=== PATIENT | female | born 1985 | race Caucasian/White ===

== ENCOUNTER 2016-11-28 13:01 | Emergency (ER) | payer SELFPAY ==
[2016-11-28 15:09] VITALS: BP 119/61
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
== END 2016-11-28 17:22 | disposition home or self-care (01) ==
LOC: ED 13:01
DX: H92.09 Otalgia, unspecified ear (principal); S16.1XXA Strain of muscle, fascia and tendon at neck level, initial encounter; V49.9XXA Car occupant (driver) (passenger) injured in unspecified traffic accident, initial encounter; Y93.9 Activity, unspecified; Y92.9 Unspecified place or not applicable
CPT/HCPCS: 72125; 72128; 72131; 99282

== ENCOUNTER 2017-07-09 20:23 | Emergency (ER) | payer SELFPAY ==
[2017-07-09 20:31] VITALS: BP 114/77
[2017-07-09] MEDS ORDERED: Amoxicillin PO (*) 500 MG CAP PO ONE (21:45)
--- NOTE | 2017-07-09 21:50 | UC ---
FLU HPI - HPI Summary HPI Summary: patient is an otherwise healthy 32-year-old female presenting to the with complaints of cough, congestion, diffuse myalgias, right sided throat pain and lymphadenopathy. Symptoms have been present for 2 days. Aggravated by nothing and relieved with nothing. She denies any known fevers, sweats, chills. She denies any known sick contacts. She has taken ibuprofen with a moderate amount of relief. Cough is without production. Denies any chest pain or shortness of breath. - History of Current Complaint Chief Complaint: UCRespiratory Stated Complaint: THROAT PAIN Time Seen by Provider: 07/09/17 21:08 Hx Obtained From: Patient Hx Last Menstrual Period: now ?: No Onset/Duration: Sudden Onset Severity Currently: Mild Severity Initially: Moderate Pain Intensity: 7 Pain Scale Used: 0-10 Numeric Associated Signs & Symptoms: Positive: Myalgia, Cough, Sore Throat Related Hx: Possible Flu/Infectious Exposure - Allergy/Home Medications Allergies/Adverse Reactions: Allergies Allergy/AdvReac Type Severity Reaction Status Date / Time No Known Allergies Allergy Verified 07/09/17 20:32 PMH/Surg Hx/FS Hx/Imm Hx Previously Healthy: Yes - Surgical History Surgical History: Yes Surgery Procedure, Year, and Place: Reconstructive surgery x3 nose. INGROWN TOENAILS BILATERAL GREAT TOES surgery - Family History Known Family History: Positive: None, Other - No history of migraine or related problems. - Social History Occupation: Employed Full-time Lives: With Family Alcohol Use: None Substance Use Type: None Smoking Status (MU): Never Smoked Tobacco Household Exposure Type: Cigarettes - Immunization History Most Recent Influenza Vaccination: unknown Most Recent Tetanus Shot: unknown Most Recent Pneumonia Vaccination: none Vaccination Up to Date: Yes Review of Systems Constitutional: Negative Skin: Negative Eyes: Negative ENT: Sore Throat Respiratory: Cough Cardiovascular: Negative Motor: Negative Neurovascular: Negative Neurological: Negative Psychological: Negative Is Patient Immunocompromised?: No All Other Systems Reviewed And Are Negative: Yes Physical Exam Triage Information Reviewed: Yes Appearance: Well-Appearing, Well-Nourished Vital Signs: Initial Vital Signs Temp 98.8 F 07/09/17 20:29 Pulse 85 07/09/17 20:29 Resp 18 07/09/17 20:29 BP 114/77 07/09/17 20:29 Pulse Ox 99 07/09/17 20:29 Vital Signs Reviewed: Yes Eye Exam: Normal Eyes: Positive: Conjunctiva Clear Neck exam: Normal Neck: Positive: Supple, No Lymphadenopathy Respiratory Exam: Normal Respiratory: Positive: Chest non-tender, Lungs clear Cardiovascular Exam: Normal Cardiovascular: Positive: RRR Neurological Exam: Normal Neurological: Positive: Alert Psychological: Positive: Normal Response To Family Skin Exam: Normal Flu Course/Dx - Course Course Of Treatment: During the course of treatment, the patient's evaluated for URI symptoms. Influenza and strep swabs obtained and negative. Right anterior cervical lymphadenopathy is noted, no pharyngeal erythema or exudates. Lungs clear to auscultation bilaterally. She appears well. She is afebrile on arrival and other vital signs are stable. I discussed with her supportive care and she is okay with this plan at this time. She is to return to the urgent care if any symptoms become worse. I have given her a note for one day off work. - Differential Dx/Diagnosis Differential Diagnosis/HQI/PQRI: Upper Respiratory Infection Provider Diagnoses: Viral Syndrome Discharge - Discharge Plan Condition: Stable Disposition: HOME Patient Education Materials: Upper Respiratory Infection (ED) Forms: *Work Release Referrals: No Primary Care Phys,NOPCP [Primary Care Provider] - Additional Instructions: Drink plenty of fluids Tylenol and ibuprofen intermittently every 3 hours Humidifier in the home will help Rest as much as you can
== END 2017-07-09 21:52 | disposition home or self-care (01) ==
LOC: UCEAST 20:23
DX: B34.9 Viral infection, unspecified (principal)
CPT/HCPCS: 87502; 87651; 99211; G0463

== ENCOUNTER 2018-03-07 08:52 | Emergency (ER) | payer SELFPAY ==
[2018-03-07 09:02] VITALS: BP 118/75
--- NOTE | 2018-03-07 09:49 | UC ---
Abdominal Pain Female HPI - HPI Summary HPI Summary: 33 yo with low abdominal pain for several weeks, she states it feels like ovulation pain but milder , around 1-2/10 most of the time and occasionally 3-4/ 10. Patient denies vaginal d/c, dysuria ,dyspareunia, headaches, fever, flank pain or radiation of pain to other areas. Denies nausea, vomiting or diarrhea. LMD FEB 15, 2018. States shehad a j2ee consultant exam in November and everything was normal - History of Current Complaint Chief Complaint: UCAbdominalPain Stated Complaint: LOWER ABD PAIN/CRAMPING Time Seen by Provider: 03/07/18 09:15 Hx Obtained From: Patient Hx Last Menstrual Period: 02/15/18 ?: No Onset/Duration: Sudden Onset, Lasting Weeks Severity Initially: Mild Severity Currently: Mild Pain Intensity: 4 Location: Suprapubic Radiates: No Character: Cramping Aggravating Factor(s): Nothing Alleviating Factor(s): Nothing Associated Signs and Symptoms: Positive: Negative - Risk Factors Ectopic Risk Factor: Negative Allergies/Adverse Reactions: Allergies Allergy/AdvReac Type Severity Reaction Status Date / Time No Known Allergies Allergy Verified 03/07/18 09:02 Home Medications: Home Medications NK [No Home Medications Reported] 03/07/18 [History Confirmed 03/07/18] PMH/Surg Hx/FS Hx/Imm Hx Previously Healthy: Yes - Surgical History Surgical History: Yes Surgery Procedure, Year, and Place: Reconstructive surgery x3 nose. INGROWN TOENAILS BILATERAL GREAT TOES surgery - Family History Known Family History: Positive: None, Other - No history of migraine or related problems. - Social History Alcohol Use: None Substance Use Type: None Smoking Status (MU): Never Smoked Tobacco Household Exposure Type: Cigarettes - Immunization History Most Recent Influenza Vaccination: unknown Most Recent Tetanus Shot: unknown Most Recent Pneumonia Vaccination: none Vaccination Up to Date: Yes Review of Systems All Other Systems Reviewed And Are Negative: Yes Gastrointestinal: Positive: Abdominal Pain Physical Exam Triage Information Reviewed: Yes Appearance: Well-Appearing, No Pain Distress, Well-Nourished Vital Signs: Initial Vital Signs Temp 98 F 03/07/18 08:59 Pulse 91 03/07/18 08:59 Resp 17 03/07/18 08:59 BP 118/75 03/07/18 08:59 Pulse Ox 99 03/07/18 08:59 Vital Signs Reviewed: Yes Eyes: Positive: Conjunctiva Clear ENT: Positive: Hearing grossly normal, Pharynx normal Neck: Positive: Supple, Nontender, No Lymphadenopathy Respiratory: Positive: Chest non-tender, Lungs clear, Normal breath sounds, No respiratory distress Cardiovascular: Positive: RRR, No Murmur, Pulses Normal, Brisk Capillary Refill Abdomen Description: Positive: Nontender, No Organomegaly, Soft Bowel Sounds: Positive: Present Musculoskeletal: Positive: Strength Intact, ROM Intact, No Edema Neurological: Positive: Alert, Muscle Tone Normal Psychological Exam: Normal Skin Exam: Normal Abd Pain Female Course/Dx - Course Course Of Treatment: 33 yo paitent with low abdominal pain of mild intensity without any other associated symptoms or physical findings , Patient had a recent normal j2ee consultant exam . test and urinalysis wnl . F.u with PCP referral was given. - Differential Dx/Diagnosis Provider Diagnoses: Low abdominal pain Discharge - Sign-Out/Discharge Documenting (check all that apply): Patient Departure All imaging exams completed and their final reports reviewed: No Studies - Discharge Plan Condition: Stable Disposition: HOME Patient Education Materials: Abdominal Pain (ED) Referrals: No Primary Care Phys,NOPCP [Primary Care Provider] - [facility]FERRAL [Outside] - Billing Disposition and Condition Condition: STABLE Disposition: Home
== END 2018-03-07 09:45 | disposition home or self-care (01) ==
LOC: UCEAST 08:52
DX: R10.30 Lower abdominal pain, unspecified (principal)
CPT/HCPCS: 81003; 84702; 99211; G0463

== ENCOUNTER → 2018-04-03 19:29 | Emergency (ER) | payer SELFPAY ==
[~2018-04-03 19:29] MED LIST: HYDROcodone/ACETAMIN 5-325 MG* 1 TAB PO ONE
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
[2018-04-03 22:10] VITALS: BP 115/74
== END | disposition home or self-care (01) ==
LOC: ED 19:29
DX: S09.90XA Unspecified injury of head, initial encounter (principal); S00.93XA Contusion of unspecified part of head, initial encounter; W10.9XXA Fall (on) (from) unspecified stairs and steps, initial encounter; Y92.9 Unspecified place or not applicable
CPT/HCPCS: 70450; 72125; 99282

== ENCOUNTER 2018-08-01 10:23 | Emergency (ER) | payer OTHER ==
--- NOTE | 2018-08-01 12:35 | UC ---
Respiratory Complaint HPI - HPI Summary HPI Summary: PATIENT COMES IN WITH 2 WEEKS OF HARSH, DEEP CHESTY COUGH WITH SOME PLEURITIC PAIN. SHE WAS HOSPITALIZED 06/26/18 - 06/28/18 WITH RIGHT MIDDLE LOBE PNEUMONIA AND DISCHARGED WITH AZITHROMYCIN AND CEFUROXIME. PATIENT STATES SHE FEELS SHE NEVER FULLY RECOVERED FROM THIS ILLNESS AND THAT OVER THE PAST 2 WEEKS THE COUGH HAS BEEN GETTING WORSE. NO FEVER OR NAUSEA. OF NOTE PATIENT IS 20 WEEKS . HAD ULTRASOUND FOR ANATOMY 2 DAYS AGO AND EVERYTHING LOOKED GOOD. BABY IS MOVING WELL. NEVER HAD FOLLOW-UP ULTRASOUND AFTER HOSPITAL DISCHARGE. - History of Current Complaint Chief Complaint: UCRespiratory Stated Complaint: COUGH,CONGESTION Time Seen by Provider: 08/01/18 12:01 Hx Obtained From: Patient Hx Last Menstrual Period: 02/15/18 Onset/Duration: Gradual Onset, Lasting Weeks, Still Present Timing: Constant Severity Initially: Moderate Severity Currently: Moderate Pain Intensity: 3 Pain Scale Used: 0-10 Numeric Character: Cough: Nonproductive Aggravating Factors: Nothing Alleviating Factors: Nothing Associated Signs And Symptoms: Negative: Dyspnea, Fever, Chills, Wheezing - Allergies/Home Medications Allergies/Adverse Reactions: Allergies Allergy/AdvReac Type Severity Reaction Status Date / Time No Known Allergies Allergy Verified 08/01/18 10:29 PMH/Surg Hx/FS Hx/Imm Hx Previously Healthy: Yes - Surgical History Surgical History: Yes Surgery Procedure, Year, and Place: Reconstructive surgery x3 nose. INGROWN TOENAILS BILATERAL GREAT TOES - Family History Known Family History: Positive: Other - No family history of migraine or related problems. - Social History Alcohol Use: None Substance Use Type: None Smoking Status (MU): Never Smoked Tobacco Household Exposure Type: Cigarettes - Immunization History Most Recent Influenza Vaccination: unknown Most Recent Tetanus Shot: unknown Most Recent Pneumonia Vaccination: none Vaccination Up to Date: Yes Review of Systems All Other Systems Reviewed And Are Negative: Yes Constitutional: Positive: Fatigue ENT: Positive: Negative Respiratory: Positive: Cough Cardiovascular: Positive: Chest Pain Gastrointestinal: Positive: Negative Neurological: Positive: Negative Physical Exam Triage Information Reviewed: Yes Appearance: Well-Appearing, No Pain Distress, Well-Nourished Vital Signs: Initial Vital Signs Temp 98.4 F 08/01/18 10:26 Pulse 104 08/01/18 10:26 Resp 18 08/01/18 10:26 BP 113/77 08/01/18 10:26 Pulse Ox 98 08/01/18 10:26 Vital Signs Reviewed: Yes Eyes: Positive: Conjunctiva Clear ENT: Positive: Hearing grossly normal Neck: Positive: Supple Respiratory: Positive: Lungs clear, No respiratory distress, No accessory muscle use, Decreased breath sounds - RIGHT MID LUNG/LUNG BASE Cardiovascular Exam: Normal Abdomen Description: Positive: Nontender, Soft Musculoskeletal: Positive: No Edema Neurological: Positive: Alert Psychological: Positive: Age Appropriate Behavior Skin: Negative: Rashes Diagnostics - Radiology CXR Radiology Interpretation Completed By: Radiologist Summary of Radiographic Findings: RELATIVE TO THE CHEST X-RAY DATED JUNE 26, 2018 THERE HAS BEEN INTERVAL INCREASE IN SIZE OF THE RIGHT MIDDLE LOBE MASS WITH PERSISTENT ELEVATION OF THE RIGHT HEMIDIAPHRAGM. ALTHOUGH THE PATIENT IS NOT THE USUAL DEMOGRAPHIC FOR NEOPLASM, NEOPLASM SHOULD BE CONSIDERED IF THE PATIENT HAS RECEIVED APPROPRIATE PNEUMONIA ANTIBIOTIC THERAPY. Respiratory Course/Dx - Course Course Of Treatment: CHEST X-RAY TODAY SHOWS INTERVAL INCREASE IN SIZE OF RIGHT LUNG MASS CONCERNING FOR NEOPLASM. DISCUSSED PATIENT'S CASE WITH DR. GORE FROM ONCOLOGY. HE WOULD LIKE TO SEE HER IN HIS OFFICE FOR FOLLOW-UP TOMORROW OR THE NEXT DAY. SHE IS TO CALL DR. GORE'S OFFICE AT 8:30 AM TOMORROW MORNING TO SCHEDULE AN APPOINTMENT. NO OTHER INTERVENTION INDICATED TODAY. PATIENT IS UNDERSTANDABLY DISTRESSED. REPORTS SHE HAS A GOOD SOCIAL AND SUPPORT NETWORK AROUND HER INCLUDING HER PARENTS AND MANY FRIENDS. SHE STATES SHE HAS AN AMICABLE RELATIONSHIP WITH THE FATHER OF HER CURRENT BUT THAT THEY ARE NOT ACTUALLY TOGETHER. PATIENT STATES SHE CAN CALL SOMEONE TO BE WITH HER OVER THE NEXT FEW DAYS. NOTE FOR OFF WORK PROVIDED. - Differential Dx/Diagnosis Provider Diagnosis: Mass of right lung - Physician Notification/Consults Discussed Patient Care With: Gonzalez Flannery - AGREE WITH RPT CXR AND TX INDICATED Time Discussed With Above Provider: 12:20 Discharge - Sign-Out/Discharge Documenting (check all that apply): Patient Departure All imaging exams completed and their final reports reviewed: Yes - Discharge Plan Condition: Stable Disposition: HOME Forms: *Work Release Referrals: Toribio Gore MD [Medical Doctor] - 1 Day Additional Instructions: YOU HAVE A MASS IN YOUR RIGHT LUNG THAT IS CONCERNING FOR NEOPLASM/CANCER. CALL DR. GORE'S OFFICE AT 8:30AM TOMORROW MORNING TO SCHEDULE AN APPOINTMENT FOR THURSDAY OR THURSDAY. HE WILL DISCUSS WITH YOU THE DIFFERENTIAL DIAGNOSIS WELL TESTING THAT NEEDS TO BE DONE. - Billing Disposition and Condition Condition: STABLE Disposition: Home
[2018-08-01 13:43] VITALS: BP 111/67
== END 2018-08-01 14:26 | disposition home or self-care (01) ==
LOC: UCEAST 10:23
DX: R91.8 Other nonspecific abnormal finding of lung field (principal); R05 Cough; R07.81 Pleurodynia
CPT/HCPCS: 71046; 99211; G0463

== ENCOUNTER 2018-08-07 14:37 | Emergency (ER) | payer OTHER ==
--- NOTE | 2018-08-07 16:47 | ED ---
HPI Chest Pain - HPI Summary HPI Summary: This patient is a 33 year old female presenting to [facility] with a chief complaint of chest pain since last week. Patient had a bout of pneumonia 6 weeks ago and was admitted for 4 days. After a course of antibiotics, patient states that she felt better. Last week, she experienced a mild cough and chest pain, so she went to , where imaging found a mass in her lung. Patient went to see Dr. Carvalho and had a biopsy 3 days ago and patient states that the chest pain has worsened since. The pain is rated 4/10 in severity. Symptoms aggravated by nothing. Symptoms alleviated by nothing. Patient denies vomiting. Patient is very anxious and is also concerned that her anxiety may be aggravating her symptoms. Patient is currently 21 weeks . - History of Current Complaint Chief Complaint: EDChestWallPain Time Seen by Provider: 08/07/18 16:31 Hx Obtained From: Patient Hx Last Menstrual Period: 02/15/18 Onset/Duration: Started Days Ago, Still Present Timing: Constant Initial Severity: Moderate Pain Intensity: 4 Pain Scale Used: 0-10 Numeric Chest Pain Location: Diffuse Chest Pain Radiates: No Aggravating Factor(s): Nothing Alleviating Factor(s): Nothing Associated Signs and Symptoms: Positive: Negative - vomiting, Cough - Additional Pertinent History Primary Care Physician: GEORGE - Allergy/Home Medications Allergies/Adverse Reactions: Allergies Allergy/AdvReac Type Severity Reaction Status Date / Time No Known Allergies Allergy Verified 08/07/18 14:44 PMH/Surg Hx/FS Hx/Imm Hx Previously Healthy: No Endocrine/Hematology History: Denies: Hx Diabetes Cardiovascular History: Denies: Hx Hypertension, Hx Pacemaker/ICD Respiratory History: Denies: Hx Asthma, Hx Chronic Obstructive Pulmonary Disease (COPD) History: Denies: Hx Renal Disease Sensory History: Denies: Hx Contacts or Glasses, Hx Legally Blind, Hx Deafness, Hx Hearing Aid Opthamlomology History: Denies: Hx Contacts or Glasses, Hx Legally Blind Neurological History: Denies: Hx Dementia Psychiatric History: Reports: Hx Anxiety - Says it has dimished as she's gotten older. Denies: Hx Panic Disorder - Surgical History Surgery Procedure, Year, and Place: Reconstructive surgery x3 nose. INGROWN TOENAILS BILATERAL GREAT TOES Infectious Disease History: No Infectious Disease History: Denies: Hx Hepatitis, Traveled Outside the [place] in Last 30 Days - Family History Known Family History: Positive: Other - No family history of migraine or related problems. - Social History Lives: With Family Alcohol Use: None Hx Substance Use: No Substance Use Type: Reports: None Hx Tobacco Use: No Smoking Status (MU): Never Smoked Tobacco Review of Systems Negative: Fever Positive: Chest Pain Positive: Cough Negative: Vomiting All Other Systems Reviewed And Are Negative: Yes Physical Exam - Summary Physical Exam Summary: Constitutional: Well-developed, Well-nourished, Alert. Patient is very anxious Skin: Warm, Dry HENT: Normocephalic; Atraumatic Eyes: Conjunctiva normal Neck: Musculoskeletal ROM normal neck. Cardio: Rhythm regular, rate normal, Heart sounds normal; Intact distal pulses; The pedal pulses are 2+ and symmetric. Radial pulses are 2+ and symmetric. Pulmonary/Chest wall: Effort normal. Tenderness to palpation at chest wall at site of biopsy. Abd: Soft, Musculoskeletal: Normal Lymph: Normal Neuro: Alert, Oriented x3 Psych: Mood and affect normal. Triage Information Reviewed: Yes Vital Signs On Initial Exam: Initial Vitals Temp Pulse Resp BP Pulse Ox 98.4 F 99 16 112/72 97 08/07/18 14:45 08/07/18 14:45 08/07/18 14:45 08/07/18 14:45 08/07/18 14:45 Vital Signs Reviewed: Yes Diagnostics - Vital Signs Vital Signs Temp Pulse Resp BP Pulse Ox 08/07/18 14:45 98.4 F 99 16 112/72 97 - Laboratory Result Diagrams: 08/07/18 17:10 08/07/18 17:10 Lab Statement: Any lab studies that have been ordered have been reviewed, and results considered in the medical decision making process. - Radiology CXR Radiology Interpretation Completed By: Radiologist Summary of Radiographic Findings: CXR reveals, per radiologist, IMPRESSION: 1. THERE IS A MEDIASTINAL MASS WHICH PROJECTS OVER THE RIGHT HEART BORDER AND RIGHT LUNG BASE WHICH IS UNCHANGED. 2. ELEVATED RIGHT HEMIDIAPHRAGM. ED physician has reviewed this radiology report. - EKG 1658 Cardiac Rate: NL EKG Rhythm: Sinus Rhythm - 73 BPM Summary of EKG Findings: An EKG, taken 1658, reveals NSR (73 BPM), normal AR, normal QRS, normal QTc, normal axis, normal ST, normal T-waves, normal EKG. Chest Pain Course/Dx - Course Course Of Treatment: This patient is a 33 year old female presenting to [facility] with a chief complaint of chest pain since last week. Patient had a bout of pneumonia 6 weeks ago and was admitted for 4 days. After a course of antibiotics , patient states that she felt better. Last week, she experienced a mild cough and chest pain, so she went to , where imaging found a mass in her lung. Patient went to see Dr. Carvalho and had a biopsy 3 days ago and patient states that the chest pain has worsened since. An EKG, taken 1658, reveals NSR (73 BPM) , normal AR, normal QRS, normal QTc, normal axis, normal ST, normal T-waves, normal EKG. CXR reveals, per radiologist, IMPRESSION: 1. THERE IS A MEDIASTINAL MASS WHICH PROJECTS OVER THE RIGHT HEART BORDER AND RIGHT LUNG BASE WHICH IS UNCHANGED. 2. ELEVATED RIGHT HEMIDIAPHRAGM. ED physician has reviewed this radiology report. Bloodwork Obtained. The pt is hemodynamically stable, alert and oriented x3. We discussed patient care with Bruce Reed (Oncology) at 1833 and they stated that as long as patient is not exhibiting signs of SVC syndrome, she can be evaluated in clinic. Patient will be discharged with a dx of chest pain and lymphoma and a prescription for hydrocodone. Patient is advised to follow up with PCP in 3 days. The patient is agreeable with this plan. - Diagnoses Provider Diagnoses: Chest pain, Lymphoma - Provider Notifications Instructed by Provider To: Other - We discussed patient care with Bruce Reed (Oncology) at 1833 and they stated that as long as patient is not exhibiting signs of SVC syndrome, she can be evaluated in clinic. Discharge - Sign-Out/Discharge Documenting (check all that apply): Patient Departure Patient Received Moderate/Deep Sedation with Procedure: No - Discharge Plan Condition: Stable Disposition: HOME Prescriptions: HYDROcodone/ACETAMIN 5-325 MG* [[place] 5-325 TAB*] 1 tab PO Q4H PRN #15 tab MDD 6 PRN Reason: Pain Patient Education Materials: Hydrocodone/Acetaminophen (By mouth) Print Language: UZBEK Forms: *Work Release Referrals: No Primary Care Phys,NOPCP [Primary Care Provider] - - Billing Disposition and Condition Condition: STABLE Disposition: Home - Attestation Statements Document Initiated by Scribe: Yes Documenting Scribe: Jose Lobato Provider For Whom Issac is Documenting (Include Credential): Bárbara Sandra MD Scribe Attestation: I, Jose Lobato, scribed for Bárbara Castillo MD on 08/07/18 at 2140. Scribe Documentation Reviewed: Yes Provider Attestation: The documentation as recorded by the Jose franco accurately reflects the service I personally performed and the decisions made by me, Bárbara Castillo MD Status of Scribe Document: Viewed
[2018-08-07 17:23] LABS: ABS Basophils 0 10^3/ul (0-0.2); ABS Eosinophils 0.4 10^3/ul (0-0.6); ABS Lymphocytes 1.5 10^3/ul (1.0-4.8); ABS Monocytes 0.5 10^3/ul (0-0.8); ABS Neutrophils 7.3 10^3/ul (1.5-7.7); ABS Nucleated RBC 0 10^3/ul; Hematocrit 34 % (33-41); Hemoglobin 11.8 g/dL (12.0-16.0); Lymphocyte % 15.2 %; Mean Corpuscular HGB Conc 34 g/dL (31-36); Mean Corpuscular Hemoglobin 28 pg (27-31); Mean Corpuscular Volume 83 fL (80-97); Mean Platelet Volume 7.6 fL (7.4-10.4); Nucleated Red Blood Cells % 0; Platelet Count 269 10^3/uL (150-450); Red Blood Count 4.15 10^6 /uL (3.70-4.87); Red Cell Distribution Width 14 % (10.5-15); White Blood Count 9.7 10^3/uL (3.5-10.8)
[2018-08-07 17:34] LABS: Albumin 3.3 g/dL (3.2-5.2); Albumin/Globulin Ratio 1.1 (1-3); Calcium 8.6 mg/dL (8.6-10.3); Potassium 3.7 mmol/L (3.5-5.0); Total Bilirubin 0.2 mg/dL (0.2-1.0); Total Protein 6.3 g/dL (6.4-8.9)
[2018-08-07 17:36] LABS: Troponin I 0.01 ng/mL (<0.04)
[2018-08-07 19:21] VITALS: BP 122/65
== END 2018-08-07 19:36 | disposition home or self-care (01) ==
LOC: ED 14:37
DX: O26.92 Pregnancy related conditions, unspecified, second trimester (principal); C85.90 Non-Hodgkin lymphoma, unspecified, unspecified site; R07.9 Chest pain, unspecified; Z3A.21 21 weeks gestation of pregnancy; R91.8 Other nonspecific abnormal finding of lung field
CPT/HCPCS: 36415; 71045; 80053; 84484; 85025; 93005; 99283

== ENCOUNTER 2018-08-12 05:41 | Day surgery (SDC) | payer OTHER ==
[~2018-08-12 05:41] MED LIST changes: +Buffered Lidocaine 1% SYRIN* 1 ML/SYRINGE INTRADERM ONE; -HYDROcodone/ACETAMIN 5-325 MG* 1 TAB PO ONE
[2018-08-12] MEDS ORDERED: Lactated Ringers 1000 ML Bag* 1,000 ML IV SCH (06:00)
[2018-08-12] MEDS ORDERED: Buffered Lidocaine 1% SYRIN* 1 ML/SYRINGE INTRADERM ONE (06:15)
[2018-08-12] MEDS ORDERED: Lidocaine 1% INJ* 10 MG/ML 30 ML SDV ONE (06:45)
[2018-08-12] MEDS ORDERED: fentaNYL* 50 MCG/ML 2 ML VIAL (100 MCG VIAL) ONE (07:29)
[2018-08-12] MEDS ORDERED: Propofol* 10 MG/ML 20 ML BTL ONE ×2 (07:29→07:35)
[2018-08-12] MEDS ORDERED: Lidocaine 2% PF * 5 ML VIAL ONE (07:29)
[2018-08-12] MEDS ORDERED: Naloxone* 0.4 MG/ML 1 ML VIAL IV PRN (08:05)
[2018-08-12] MEDS ORDERED: Acetaminophen TAB* 325 MG ONE (08:27)
[2018-08-12 09:32] VITALS: BP 122/80
--- NOTE | 2018-08-12 12:46 | OP ---
CC: Dr. Leodan Lyons; Dr. Carvalho OPERATIVE REPORT: DATE OF OPERATION: 08/12/18 DATE OF : 85 SURGEON: Leodan Lyons MD TIE IN MACHINE OPERATOR: None. ANESTHESIOLOGIST: Dr. Pollack. ANESTHESIA: LMAC anesthesia. PRE-OP DIAGNOSIS: Lymphoma. POST-OP DIAGNOSIS: Lymphoma. OPERATIVE PROCEDURE: Placement of left subclavian PowerPort. DESCRIPTION OF PROCEDURE: The patient was supine on the operating room table. After adequate intrave nous sedation, compression stockings, Audelia Hugger warmer, and intravenous antibiotics, the left neck and chest region were prepped with antiseptic and draped in a sterile fashion. Local infiltrative an esthesia was administered. Subclavian venipuncture was carried out. Guidewire was passed without di fficulty. Inferior pocket was created through a 3 cm incision and the port was sutured in the pocket using 2-0 Prolene. The catheter was cut to 27 cm and attached to the port. This was done under flu oroscopy. Due to the nature of the tumor, the course of the catheter was a little deviated, but it a ppeared to be in good position. Closure was accomplished using 3-0 and 5-0 Vicryl followed by Steri- Strips. There was good blood return. It was flushed with saline solution and heparinized solution. She was brought to Recovery in good condition. No complications. No drains. No pathologic specime ns. Sponge and instrument counts correct. Estimated blood loss 10 mL. [id number]/[facility] #: [id number]
== END 2018-08-12 11:05 | disposition home or self-care (01) ==
LOC: OR 05:41
PROVIDERS: ATTEND Surgery
DX: C83.30 Diffuse large B-cell lymphoma, unspecified site (principal); R91.8 Other nonspecific abnormal finding of lung field; R05 Cough
CPT/HCPCS: 71045; 76000; A9270-GY; C1788; J1642; J2704; J3010

== ENCOUNTER 2018-08-14 10:53 | Emergency (ER) | payer OTHER ==
[2018-08-14 12:21] LABS: ABS Basophils 0 10^3/ul (0-0.2); ABS Eosinophils 0.2 10^3/ul (0-0.6); ABS Lymphocytes 1.1 10^3/ul (1.0-4.8); ABS Monocytes 0.4 10^3/ul (0-0.8); ABS Neutrophils 7.3 10^3/ul (1.5-7.7); ABS Nucleated RBC 0 10^3/ul; Eosinophil % 2.7 %; Hematocrit 33 % (33-41); Hemoglobin 11.2 g/dL (12.0-16.0); Lymphocyte % 12.1 %; Mean Corpuscular HGB Conc 34 g/dL (31-36); Mean Corpuscular Hemoglobin 28 pg (27-31); Mean Corpuscular Volume 83 fL (80-97); Mean Platelet Volume 7.2 fL (7.4-10.4); Nucleated Red Blood Cells % 0; Platelet Count 222 10^3/uL (150-450); Red Blood Count 3.99 10^6 /uL (3.70-4.87); Red Cell Distribution Width 14 % (10.5-15); White Blood Count 9.1 10^3/uL (3.5-10.8)
[2018-08-14 12:40] LABS: Albumin 3.3 g/dL (3.2-5.2); Albumin/Globulin Ratio 1.2 (1-3); BUN/Creatinine Ratio 27.8 (8-20); C Reactive Protein 14.84 mg/L (<8.01); Calcium 8.5 mg/dL (8.6-10.3); EGFR African American 157.3 (>60); Globulin 2.8 g/dL (2-4); Potassium 3.8 mmol/L (3.5-5.0); Total Bilirubin 0.3 mg/dL (0.2-1.0); Total Protein 6.1 g/dL (6.4-8.9); Troponin I 0.01 ng/mL (<0.04)
[2018-08-14 13:09] LABS: Urine Appearance Turbid; Urine Bilirubin Negative (Negative); Urine Blood Negative (Negative); Urine Color Amber; Urine Glucose Negative (Negative); Urine Ketones Negative (Negative); Urine Nitrite Negative (Negative); Urine Protein Negative (Negative); Urine Specific Gravity 1.019 (1.010-1.030); Urine Urobilinogen Negative (Negative)
[2018-08-14 14:30] VITALS: BP 112/75
[2018-08-14] MEDS ORDERED: Hydrocortisone 1% CREAM* 30 GM TUBE TOPICAL SCH ×2 (14:34→21:00)
--- NOTE | 2018-08-14 16:24 | ED ---
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 Patient states symptoms have been intermittent 2 days since getting the port placed. She had a subsequent chest abdomen pelvis MRI which showed no acute findings. There does not appear to be malignancy on the scans. Bone marrow biopsy of the left femur showed no evidence of hematologic malignancy. Patient states she is currently asymptomatic, but due to everything that has been happening, she does have anxiety and feels this may be related. She denies any worsening SOB, but this is her baseline secondary to her lymphoma. She denies any weakness. Denies any headaches, visual changes, confusion, memory loss, CP, numbness or tingling to the bilateral upper or lower extremities. Pain is strictly at the port site without radiation. There is pain only to palpation. - History of Current Complaint Chief Complaint: EDGeneral Stated Complaint: FEELS PRESSURE ON HER FACE. PER PT Time Seen by Provider: 08/14/18 11:24 Hx Obtained From: Patient Hx Last Menstrual Period: 02/15/18 Onset/Duration: Started Hours Ago Timing: Constant Initial Severity: Mild Current Severity: Mild Pain Intensity: 0 Pain Scale Used: 0-10 Numeric Chest Pain Location: Left Lateral - directly over the incision site of new port placement Chest Pain Radiates: No Aggravating Factor(s): Nothing Alleviating Factor(s): Nothing Associated Signs and Symptoms: Positive: Negative - Additional Pertinent History Primary Care Physician: [id number] - Allergy/Home Medications Allergies/Adverse Reactions: Allergies Allergy/AdvReac Type Severity Reaction Status Date / Time No Known Allergies Allergy Verified 08/14/18 11:16 Home Medications: Home Medications Citalopram Hydrobromide [Citalopram HBr] 1 tab PO DAILY 08/14/18 [History Confirmed 08/14/18] Ondansetron [Ondansetron Odt] 4 mg PO DAILY PRN 08/14/18 [History Confirmed ] Prochlorperazine Maleate 5 mg PO DAILY PRN 08/14/18 [History Confirmed 08/14/18] predniSONE TAB* [Deltasone 20 MG TAB*] 1 tab PO DAILY 08/14/18 [History Confirmed 08/14/18] PMH/Surg Hx/FS Hx/Imm Hx Previously Healthy: Yes Endocrine/Hematology History: Denies: Hx Diabetes Cardiovascular History: Denies: Hx Hypertension, Hx Pacemaker/ICD Respiratory History: Denies: Hx Asthma, Hx Chronic Obstructive Pulmonary Disease (COPD) History: Denies: Hx Renal Disease Sensory History: Denies: Hx Contacts or Glasses, Hx Legally Blind, Hx Deafness, Hx Hearing Aid Opthamlomology History: Denies: Hx Contacts or Glasses, Hx Legally Blind Neurological History: Denies: Hx Dementia Psychiatric History: Reports: Hx Anxiety - Says it has dimished as she's gotten older. Denies: Hx Panic Disorder - Cancer History Cancer Type, Location and Year: NEW DX - NONHODGKINS LYMPHOMA Hx Chemotherapy: No Hx Radiation Therapy: No - Surgical History Surgery Procedure, Year, and Place: POWER PORT - Immunization History Hx Pertussis Vaccination: No Immunizations Up to Date: Yes Infectious Disease History: No Infectious Disease History: Denies: Hx Hepatitis, Traveled Outside the [place] in Last 30 Days - Family History Known Family History: Positive: Other - No family history of migraine or related problems. - Social History Occupation: Unemployed Lives: With Family Alcohol Use: None Hx Substance Use: No Substance Use Type: Reports: None Hx Tobacco Use: No Smoking Status (MU): Never Smoked Tobacco Review of Systems Constitutional: Negative Negative: Fever, Chills, Fatigue, Skin Diaphoresis Negative: Photophobia, Blurred Vision, Diplopia, Drainage, Erythema Positive: Chest Pain - left anterior chest wall over incision site. Negative: Palpitations Negative: Shortness Of Breath, Cough Negative: Arthralgia, Myalgia Skin: Negative Neurological: Negative Positive: Anxious All Other Systems Reviewed And Are Negative: Yes NIH Scale - NIH Scale Level of Consciousness: Alert/Keenly Responsive Ask Patient the Month and His/Her Age: Both Correct Ask Pt to Open/Close Eyes and Oxygraph Operator/Release Non-Paretic Hand: Both Correctly Best Gaze (Only Horizontal Eye Movement): Normal Visual Field Testing: No Visual Loss Facial Paresis-Pt to Smile & Close Eyes or Grimace Symmetry: Normal/Symmetrical Motor Function - Right Arm: No Drift-Holds 10 Seconds Motor Function - Left Arm: No Drift-Holds 10 Seconds Motor Function - Right Leg: No Drift-Holds 10 Seconds Motor Function - Left Leg: No Drift-Holds 10 Seconds Limb Ataxia-Must be out of Proportion to Weakness Present: Absent Sensory (Use Pinprick to Test Arms/Legs/Trunk/Face): Normal Best Language (Describe Picture, Name Items): No Aphasia Dysarthria (Read Several Words): Normal Extinction and Inattention: No Abnormality Total Score: 0 Physical Exam Triage Information Reviewed: Yes Vital Signs On Initial Exam: Initial Vitals Temp Pulse Resp BP Pulse Ox 97.6 F 99 16 109/80 99 08/14/18 11:10 08/14/18 11:10 08/14/18 11:10 08/14/18 11:10 08/14/18 11:10 Vital Signs Reviewed: Yes Appearance: Positive: Well-Appearing, Well-Nourished Skin: Positive: Warm, Skin Color Reflects Adequate Perfusion Head/Face: Positive: Normal Head/Face Inspection Eyes: Positive: EOMI, JUNI, Conjunctiva Clear Neck: Positive: Supple, Nontender, No Lymphadenopathy Respiratory/Lung Sounds: Positive: Clear to Auscultation, Breath Sounds Present Cardiovascular: Positive: RRR, Pulses are Symmetrical in both Upper and Lower Extremities Musculoskeletal: Positive: Normal, Strength/ROM Intact Neurological: Positive: Speech Normal Psychiatric: Positive: Normal, Affect/Mood Appropriate AVPU Assessment: Alert Diagnostics - Vital Signs Vital Signs Temp Pulse Resp BP Pulse Ox 08/14/18 14:29 98.2 F 90 16 112/75 97 08/14/18 14:22 94 112/75 97 08/14/18 12:04 93 94 08/14/18 11:51 95 97 08/14/18 11:10 97.6 F 99 16 109/80 99 - Laboratory Lab Results: Lab Results 08/14/18 08/14/18 08/14/18 Range/Units 12:15 12:15 12:47 WBC 9.1 (3.5-10.8) 10^3/uL RBC 3.99 (3.70-4.87) 10^6 /uL Hgb 11.2 L (12.0-16.0) g/dL Hct 33 (33-41) % MCV 83 (80-97) fL MCH 28 (27-31) pg MCHC 34 (31-36) g/dL RDW 14 (10.5-15) % Plt Count 222 (150-450) 10^3/uL MPV 7.2 L (7.4-10.4) fL Neut % (Auto) 80.4 % Lymph % (Auto) 12.1 % [place] % (Auto) 4.4 % Eos % (Auto) 2.7 % Baso % (Auto) 0.4 % Absolute Neuts (auto) 7.3 (1.5-7.7) 10^3/ul Absolute Lymphs (auto) 1.1 (1.0-4.8) 10^3/ul Absolute Monos (auto) 0.4 (0-0.8) 10^3/ul Absolute Eos (auto) 0.2 (0-0.6) 10^3/ul Absolute Basos (auto) 0 (0-0.2) 10^3/ul Absolute Nucleated RBC 0 10^3/ul Nucleated RBC % 0 Sodium 136 (135-145) mmol/L Potassium 3.8 (3.5-5.0) mmol/L Chloride 107 (101-111) mmol/L Carbon Dioxide 22 (22-32) mmol/L Anion Gap 7 (2-11) mmol/L BUN 15 (6-24) mg/dL Creatinine 0.54 (0.51-0.95) mg/dL Est GFR ( Amer) 157.3 (>60) Est GFR (Non-Af Amer) 130.0 (>60) BUN/Creatinine Ratio 27.8 H (8-20) Glucose 91 (70-100) mg/dL Calcium 8.5 L (8.6-10.3) mg/dL Total Bilirubin 0.30 (0.2-1.0) mg/dL AST 14 (13-39) U/L ALT 18 (7-52) U/L Alkaline Phosphatase 185 H (34-104) U/L Troponin I 0.01 (<0.04) ng/mL C-Reactive Protein 14.84 H (<8.01) mg/L Total Protein 6.1 L (6.4-8.9) g/dL Albumin 3.3 (3.2-5.2) g/dL Globulin 2.8 (2-4) g/dL Albumin/Globulin Ratio 1.2 (1-3) Urine Color Pamela Urine Appearance Turbid Urine pH 7.0 (5-9) Ur Specific [place] 1.019 (1.010-1.030) Urine Protein Negative (Negative) Urine Ketones Negative (Negative) Urine Blood Negative (Negative) Urine Nitrate Negative (Negative) Urine Bilirubin Negative (Negative) Urine Urobilinogen Negative (Negative) Ur Leukocyte Esterase Negative (Negative) Urine Glucose Negative (Negative) Result Diagrams: 08/14/18 12:15 08/14/18 12:15 Lab Statement: Any lab studies that have been ordered have been reviewed, and results considered in the medical decision making process. Disposition - Course Course Of Treatment: On physical examination, patient appears well, nontoxic appearing and lungs are clear to auscultation. There is a small incision over the left chest wall with port placement. No drainage from this area. Incision is CDI. Pain directly over palpation. Patient states she is very anxious about all that is going on and she does not have support at home. She feels most of her symptoms are related to her anxiety, but would like to know the results of her testing from yesterday and is concerned over malignancy. She states "I just want to make sure I'm not dying." She appears very anxious on arrival. Labs obtained: No acute findings. No chest x-ray obtained as MRI completed yesterday. Lungs CTA, RRR. Patient is afebrile and nontoxic appearing. Neuro exam completed and with no abnormalities. Discussed at length with patient the importance of social work consult and finding good support systems in the community as she was recently diagnosed with lymphoma and she is concerned with her financial status and take care for her children. Also she is currently . She has very close follow-up with Dr. Carvalho in his office. She has an appointment with Evangelina Alanis in 2 days. Patient states she feels comfortable with her follow-ups it is currently asymptomatic. Her vital signs are stable and she is okay for discharge at this time. She'll be diagnosed with anxiety. - Differential Dx - Cardiopulmonary Differential Diagnoses - Cardiopulmonary: Other - Chest pain, worsening condition, lymphoma, pain at port site - Diagnoses Provider Diagnoses: Anxiety about health, Incisional pain Discharge - Sign-Out/Discharge Documenting (check all that apply): Patient Departure Patient Received Moderate/Deep Sedation with Procedure: No - Discharge Plan Condition: Stable Disposition: HOME Patient Education Materials: Implanted Venous Access Port (DC), Anxiety (ED) Referrals: No Primary Care Phys,NOPCP [Primary Care Provider] - Additional Instructions: Please follow up with oncology as scheduled Social work should be reaching out to you Please get the help you need No findings today on blood work and your results of MRI and bone marrow biopsy were given to you as requested - Billing Disposition and Condition Condition: STABLE Disposition: Home
== END 2018-08-14 14:29 | disposition home or self-care (01) ==
LOC: ED 10:53
DX: F41.9 Anxiety disorder, unspecified (principal); G89.18 Other acute postprocedural pain; Z79.52 Long term (current) use of systemic steroids
CPT/HCPCS: 36415; 80053; 81003; 84484; 85025; 86140; 99283; A9270-GY

== ENCOUNTER 2018-08-21 08:45 | Emergency (ER) | payer OTHER ==
--- NOTE | 2018-08-21 09:13 | ED ---
Upper Extremity Pain - HPI Summary HPI Summary: This patient is a 33 year old female presenting to [facility] with a chief complaint of left axillary pain since this week. Patient is an ongoing lymphoma patient, having been at the beginning of this month. Patient spoke to Dr. Starr, her oncologist, who recommended the patient have an evaluation in the ED to rule out a blood clot. The pain is rated 6/10 in severity. Symptoms aggravated by nothing. Symptoms alleviated by nothing. Patient denies any other medical complaints at this time. Patient is also currently . - History of Current Complaint Chief Complaint: EDExtremityUpper Stated Complaint: STARTED CHEMO TUES/LFT ARM PIT RED/PAIN PER PT Time Seen by Provider: 08/21/18 09:00 Hx Obtained From: Patient Hx Last Menstrual Period: 02/15/18 Mechanism Of Injury: Unknown Onset/Duration: Started Days Ago, Still Present Timing: Constant Severity Currently: Moderate Pain Location: Other: - left armpit Aggravating Factor(s): Nothing Alleviating Factor(s): Nothing Associated Signs & Symptoms: Negative: Fever - Allergies/Home Medications Allergies/Adverse Reactions: Allergies Allergy/AdvReac Type Severity Reaction Status Date / Time No Known Allergies Allergy Verified 08/21/18 08:49 PMH/Surg Hx/FS Hx/Imm Hx Previously Healthy: No Endocrine/Hematology History: Denies: Hx Diabetes Cardiovascular History: Denies: Hx Hypertension, Hx Pacemaker/ICD Respiratory History: Denies: Hx Asthma, Hx Chronic Obstructive Pulmonary Disease (COPD) History: Denies: Hx Renal Disease Sensory History: Denies: Hx Contacts or Glasses, Hx Legally Blind, Hx Deafness, Hx Hearing Aid Opthamlomology History: Denies: Hx Contacts or Glasses, Hx Legally Blind Neurological History: Denies: Hx Dementia Psychiatric History: Reports: Hx Anxiety - Says it has dimished as she's gotten older. 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 - Social History Lives: With Family Alcohol Use: None Hx Substance Use: No Substance Use Type: Reports: None Hx Tobacco Use: No Smoking Status (MU): Never Smoked Tobacco Review of Systems Negative: Fever Positive: Other - left axillary pain All Other Systems Reviewed And Are Negative: Yes Physical Exam - Summary Physical Exam Summary: Appearance: well appearing, no pain distress Skin: warm, dry, reflects adequate perfusion Head/face: normal Eyes: EOMI, JUNI ENT: mucous membranes moist Neck: supple, non-tender Respiratory: breath sounds present, but diminished at right base Cardiovascular: RRR, pulses symmetrical Abdomen: non-tender, soft Bowel Sounds: present Musculoskeletal: strength/ROM intact. Lymphadenopathy in the right axillary Neuro: normal, sensory motor intact, A&Ox3 Triage Information Reviewed: Yes Vital Signs On Initial Exam: Initial Vitals Temp Pulse Resp BP Pulse Ox 96.7 F 107 15 130/75 97 08/21/18 08:50 08/21/18 08:50 08/21/18 08:50 08/21/18 08:50 08/21/18 08:50 Vital Signs Reviewed: Yes Diagnostics - Vital Signs Vital Signs Temp Pulse Resp BP Pulse Ox 08/21/18 08:50 96.7 F 107 15 130/75 97 - Laboratory Lab Statement: Any lab studies that have been ordered have been reviewed, and results considered in the medical decision making process. - Additional Comments Diagnostic Additional Comments: Bedside US preformed by ED physician: Fetus is active. heart tones present ; measures 23 weeks and 3 days. RUQ shows right sided hydronephrosis and hyperechoic mass above the diaphragm on the right. On the left axillla, the veins are easily compressible and there is adenopathy. Good flow in the subclavian vein. Course/Dx - Course Course Of Treatment: Nurse's notes reviewed. Patient with history of B-cell lymphoma who presents with painful lesions in the left axilla. Eye exam the area with bedside ultrasound which showed adenopathy but good blood flow without evidence of DVT in the axillary vessels or basilic/brachial. There is also good blood flow in the left subclavian. The fetus is active with heart tones and is measuring appropriate for dates. Additionally I examined the right low chest given her chronic cough. It appears that there is solid lesion that is hyperechoic above the diaphragm on that side. This is likely her tumor. I explained that her adenopathy is likely related to her cancer as well. She is currently undergoing chemotherapy and will be-induced to deliver her baby pending the recommendations of oncology/maternal- medicine. Treated with Tylenol and warm compresses. - Diagnoses Differential Diagnosis/HQI/PQRI: Positive: Other - DVT, cellulitis, lymphadenitis Provider Diagnoses: B-cell lymphoma, Lymphadenopathy, Second trimester Discharge - Sign-Out/Discharge Documenting (check all that apply): Patient Departure Patient Received Moderate/Deep Sedation with Procedure: No - Discharge Plan Condition: Improved Disposition: HOME Patient Education Materials: Non-Hodgkin Lymphoma (ED), Lymphadenopathy (ED) Referrals: Toribio Carvalho MD [Primary Care Provider] - Additional Instructions: Tylenol for discomfort. Warm compresses to the area may help. Follow-up with her oncologist on Thursday. Return if worse or other concerns. - Billing Disposition and Condition Condition: IMPROVED Disposition: Home - Attestation Statements Document Initiated by Briceibe: Yes Documenting Scribe: Jose Lobato Provider For Whom Issac is Documenting (Include Credential): Pablo Cochran MD Scribe Attestation: Jose Del Angel scribed for Pablo Cochran MD on 08/21/18 at 1022. Scribe Documentation Reviewed: Yes Provider Attestation: The documentation as recorded by the Jose franco accurately reflects the service I personally performed and the decisions made by , Pablo Cochran MD Status of Scribe Document: Viewed
[2018-08-21 09:43] VITALS: BP 120/74
== END 2018-08-21 09:33 | disposition home or self-care (01) ==
LOC: ED 08:45
DX: O9A.112 Malignant neoplasm complicating pregnancy, second trimester (principal); O26.892 Other specified pregnancy related conditions, second trimester; C85.10 Unspecified B-cell lymphoma, unspecified site; M79.622 Pain in left upper arm; Z3A.23 23 weeks gestation of pregnancy
CPT/HCPCS: 99282

== ENCOUNTER 2018-08-29 16:41 | Emergency (ER) | payer OTHER ==
--- NOTE | 2018-08-29 19:17 | ED ---
Complex/Multi-Sys Presentation - HPI Summary HPI Summary: 33-year-old female presents feeling that her port in her chest has moved. She has the port due to chemotherapy need for lymphoma. She states that her child has been bumping her chest and she feels like the port has moved upwards. She just has pain around the port. No chest pain or shortness breath. No swelling to her face or arms. Denies any current numbness. States her lymph nodes in her armpit though have been feeling swollen. Denies any fevers or chills. No spreading redness. - History Of Current Complaint Chief Complaint: EDGeneral Time Seen by Provider: 08/29/18 18:25 - Allergies/Home Medications Allergies/Adverse Reactions: Allergies Allergy/AdvReac Type Severity Reaction Status Date / Time No Known Allergies Allergy Verified 08/21/18 08:49 PMH/Surg Hx/FS Hx/Imm Hx Endocrine/Hematology History: Denies: Hx Diabetes Cardiovascular History: Denies: Hx Hypertension, Hx Pacemaker/ICD Respiratory History: Denies: Hx Asthma, Hx Chronic Obstructive Pulmonary Disease (COPD) History: Denies: Hx Renal Disease Sensory History: Denies: Hx Contacts or Glasses, Hx Legally Blind, Hx Deafness, Hx Hearing Aid Opthamlomology History: Denies: Hx Contacts or Glasses, Hx Legally Blind Neurological History: Denies: Hx Dementia Psychiatric History: Reports: Hx Anxiety - Says it has dimished as she's gotten older. 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 - Social History Alcohol Use: None Hx Substance Use: No Substance Use Type: Reports: None Hx Tobacco Use: No Smoking Status (MU): Never Smoked Tobacco Review of Systems Negative: Fever Positive: Other - possible moved port. Negative: Chest Pain Negative: Shortness Of Breath All Other Systems Reviewed And Are Negative: Yes Physical Exam Triage Information Reviewed: Yes Vital Signs On Initial Exam: Initial Vitals Temp Pulse Resp BP Pulse Ox 97.8 F 103 16 115/79 98 08/29/18 16:57 08/29/18 16:57 08/29/18 16:57 08/29/18 16:57 08/29/18 16:57 Vital Signs Reviewed: Yes Appearance: Positive: Well-Appearing Skin: Positive: Warm, Dry Head/Face: Positive: Normal Head/Face Inspection Eyes: Positive: Normal, Conjunctiva Clear ENT: Positive: Pharynx normal Respiratory/Lung Sounds: Positive: Clear to Auscultation, Breath Sounds Present , Other - incision clean dry and intact Cardiovascular: Positive: Normal, RRR Musculoskeletal: Positive: Normal Neurological: Positive: Normal Psychiatric: Positive: Normal Diagnostics - Vital Signs Vital Signs Temp Pulse Resp BP Pulse Ox 08/29/18 16:57 97.8 F 103 16 115/79 98 - Laboratory Lab Statement: Any lab studies that have been ordered have been reviewed, and results considered in the medical decision making process. - Radiology chest Radiology Interpretation Completed By: ED Physician Summary of Radiographic Findings: port in place Complex Multi-Symp Course/Dx Course Of Treatment: 33-year-old female presents feeling that her port in her chest has moved. She has the port due to chemotherapy need for lymphoma. She states that her child has been bumping her chest and she feels like the port has moved upwards. She just has pain around the port. No chest pain or shortness breath. No swelling to her face or arms. Denies any current numbness. States her lymph nodes in her armpit though have been feeling swollen. Denies any fevers or chills. No spreading redness. On exam surgical incision clean dry and intact. Port felt underneath. X-ray read by me and Dr. ruiz in place. Told to follow up with oncology. Patient understands agrees with plan. - Diagnoses Differential Diagnoses/HQI/PQRI: Other - port placement, cellulitis Provider Diagnoses: Port-A-Cath in place Discharge - Sign-Out/Discharge Documenting (check all that apply): Patient Departure Patient Received Moderate/Deep Sedation with Procedure: No - Discharge Plan Condition: Good Disposition: HOME Referrals: Toribio Carvalho MD [Primary Care Provider] - Additional Instructions: your port appears to be in the right place follow up with oncology Return to ED if develop any new or worsening symptoms - Billing Disposition and Condition Condition: GOOD Disposition: Home
[2018-08-29 19:26] VITALS: BP 127/65
--- NOTE | 2018-08-30 12:14 | PN ---
Progress Note - Progress Note Date of Service: 08/29/18 Note: Final radiology read on CXR: IMPRESSION: 1. ELEVATED RIGHT HEMIDIAPHRAGM, UNCHANGED. 2. MASSLIKE DENSITY PRESENT MEDIALLY AT THE RIGHT LUNG BASE, UNCHANGED. 3. FINDINGS SUGGESTIVE OF A TRACE RIGHT PLEURAL EFFUSION, UNCHANGED. R2 No change in treatment needed.
== END 2018-08-29 19:24 | disposition home or self-care (01) ==
LOC: ED 16:41
DX: Z95.828 Presence of other vascular implants and grafts (principal); C85.90 Non-Hodgkin lymphoma, unspecified, unspecified site; F41.9 Anxiety disorder, unspecified; R91.8 Other nonspecific abnormal finding of lung field
CPT/HCPCS: 71045; 99282

== ENCOUNTER 2018-09-15 09:36 | Emergency (ER) | payer OTHER ==
--- NOTE | 2018-09-15 10:15 | ED ---
Respiratory - HPI Summary HPI Summary: The patient is a 33 y/o F presenting to [facility] with a chief complaint of sudden onset productive cough with small amount of sputum for the last few days. She is unsure of the color of the sputum. She started chemotherapy treatments for Nongodgkins Lyphoma recently with her latest and only second treatment last week , and her next one is in two weeks; she fears for infection due to being immunocompromised. She additionally c/o CP with the cough, chills, and nausea. Her pain is currently rated 3/10 in severity. She denies fever and vomiting. Her PCP is Dr. Carvalho. - History of Current Complaint Chief Complaint: EDUpperRespComplaint Stated Complaint: ON CHEMO/HAS A NASTY COLD/CANT BREATHE PER PT Time Seen by Provider: 09/15/18 10:07 Hx Obtained From: Patient Onset/Duration: Sudden Onset, Lasting Days, Still Present Initial Severity: Mild Current Severity: Mild Pain Intensity: 3 Character: Cough (Productive) Sputum Amount: Small Aggravating Factor(s): Nothing Alleviating Factor(s): Nothing Associated Signs and Symptoms: Chest Pain with Cough, Chills - Allergy/Home Medications Allergies/Adverse Reactions: Allergies Allergy/AdvReac Type Severity Reaction Status Date / Time No Known Allergies Allergy Verified 09/15/18 09:59 PMH/Surg Hx/FS Hx/Imm Hx Endocrine/Hematology History: Denies: Hx Diabetes Cardiovascular History: Denies: Hx Hypertension, Hx Pacemaker/ICD Respiratory History: Denies: Hx Asthma, Hx Chronic Obstructive Pulmonary Disease (COPD) History: Denies: Hx Renal Disease Sensory History: Denies: Hx Contacts or Glasses, Hx Legally Blind, Hx Deafness, Hx Hearing Aid Opthamlomology History: Denies: Hx Contacts or Glasses, Hx Legally Blind Neurological History: Denies: Hx Dementia Psychiatric History: Reports: Hx Anxiety - Says it has dimished as she's gotten older. Denies: Hx Panic Disorder - Cancer History Cancer Type, Location and Year: NEW DX - NONHODGKINS LYMPHOMA Hx Chemotherapy: No Hx Radiation Therapy: No - Surgical History Surgery Procedure, Year, and Place: POWER PORT - Immunization History Immunizations Up to Date: Yes Infectious Disease History: No Infectious Disease History: Denies: Hx Hepatitis, Traveled Outside the [place] in Last 30 Days - Family History Known Family History: Positive: Other - No family history of migraine or related problems. Negative: Cardiac Disease, Hypertension, Diabetes - Social History Alcohol Use: None Hx Substance Use: No Substance Use Type: Reports: None Hx Tobacco Use: No Smoking Status (MU): Never Smoked Tobacco Do You Chew or Dip Tobacco: No Have You Chewed or Dipped Tobacco in the LAST YEAR: No Have You Smoked in the Last Year: No Review of Systems Positive: Chills. Negative: Fever Positive: Chest Pain - with cough Positive: Cough - productive Positive: Nausea. Negative: Vomiting All Other Systems Reviewed And Are Negative: Yes Physical Exam - Summary Physical Exam Summary: VITAL SIGNS: Reviewed. GENERAL: Patient is a well-developed and nourished female who is lying comfortable in the stretcher. Patient is not in any acute respiratory distress. HEAD AND FACE: No signs of trauma. No ecchymosis, hematomas or skull depressions. No sinus tenderness. EYES: PERRLA, EOMI x 2, No injected conjunctiva, no nystagmus. EARS: Hearing grossly intact. Ear canals and tympanic membranes are within normal limits. MOUTH: Oropharynx within normal limits. NECK: Supple, trachea is midline, no adenopathy, no JVD, no carotid bruit, no c- spine tenderness, neck with full ROM. CHEST: Symmetric, no tenderness at palpation LUNGS: Clear to auscultation bilaterally. No wheezing or crackles. CVS: Regular rate and rhythm, S1 and S2 present, no murmurs or gallops appreciated. ABDOMEN: Soft, non-tender. No signs of distention. No rebound no guarding, and no masses palpated. Bowel sounds are normal. EXTREMITIES: FROM in all major joints, no edema, no cyanosis or clubbing. NEURO: Alert and oriented x 3. No acute neurological deficits. Speech is normal and follows commands. SKIN: Dry and warm Triage Information Reviewed: Yes Vital Signs On Initial Exam: Initial Vitals Temp Pulse Resp BP Pulse Ox 97.0 F 123 19 148/99 95 09/15/18 09:40 09/15/18 09:40 09/15/18 09:40 09/15/18 09:40 09/15/18 09:40 Vital Signs Reviewed: Yes Diagnostics - Vital Signs Vital Signs Temp Pulse Resp BP Pulse Ox 09/15/18 09:40 97.0 F 123 19 148/99 95 - Laboratory Result Diagrams: 09/15/18 11:34 09/15/18 11:34 Lab Statement: Any lab studies that have been ordered have been reviewed, and results considered in the medical decision making process. - Radiology CXR Radiology Interpretation Completed By: Radiologist Summary of Radiographic Findings: 1. Interval decrease in size of the mediastinal mass. 2. Elevated right hemidiaphragm, small right basilar infiltrate suggestive of atelectasis and trace right pleural effusion, unchanged. ED physician has reviewed this report. - EKG 1121 Cardiac Rate: NL - 97 BPM EKG Rhythm: Sinus Rhythm EKG Comparison: No Significant Change - Similar to EKG taken on 08/07/18 Summary of EKG Findings: NSR, nml axis, no ST elevations Re-Evaluation - Re-Evaluation First Eval Re-Evaluation Time: 12:35 Comment: I spoke with the patient concerning results and discharge home. Disposition - Course Assessment/Plan: The patient is a 33 y/o F presenting to [facility] with a chief complaint of sudden onset productive cough with small amount of sputum for the last few days. She is unsure of the color of the sputum. She started chemotherapy treatments for Nongodgkins Lyphoma recently with her latest and only second treatment last week, and her next one is in two weeks; she fears for infection due to being immunocompromised. She additionally c/o CP with the cough, chills, and nausea. Her pain is currently rated 3/10 in severity. She denies fever and vomiting. Her PCP is Dr. Carvalho. Patient was placed in a cardiac care unit nurse. IV access was obtained. Blood work, EKG and chest x-ray was ordered. Chest x-ray impression: Interval decrease in size of the mediastinal mass. Elevated right hemidiaphragm and, small right basilar infiltrate suggestive atelectasis and trace right pleural effusion. Unchanged. The blood work without any significant abnormality except for slight anemia, sodium of 134 , CRP of 13, urinalysis positive for UTI. Therefore, the patient will be placed in Bactrim and discharged home with follow-up with PCP and Dr. Carvalho. I discussed all the findings and test results with the patient. Patient was instructed to return to the emergency room immediately if any of the symptoms return worsens. Plan of care was discussed with the patient and understands and agrees. All questions were answered at patient satisfaction. There were no further complaints or concerns. Lung exam before discharge: CTA B/L. Good air exchange. No wheezing or crackles heard. CVS: S1 and S2 present. No murmurs appreciated. Patient is alert and oriented x 3. Patient is hemodynamically stable. Patient will be discharged home with follow up PCP in the next 2-3 days. - Differential Dx - Cardiopulmonary Differential Diagnoses - Cardiopulmonary: Bronchitis, CHF, Lower Resp Infection - Diagnoses Provider Diagnoses: UTI (urinary tract infection) Discharge - Sign-Out/Discharge Documenting (check all that apply): Patient Departure - Patient will be discharged home. Patient Received Moderate/Deep Sedation with Procedure: No - Discharge Plan Condition: Stable Disposition: HOME Prescriptions: Sulfamethox/Trimethoprim DS* [Bactrim DS 800/160 TAB*] 1 tab PO BID #14 tab Patient Education Materials: Urinary Tract Infection in Women (DC) Referrals: Toribio Carvalho MD [Primary Care Provider] - 3 Days Additional Instructions: Please take medication as prescribed. FOLLOW UP WITH YOUR PRIMARY CARE PROVIDER WITHIN ONE WEEK. RETURN TO THE ED FOR ANY WORSENING OR NEW SYMPTOMS. - Billing Disposition and Condition Condition: STABLE Disposition: Home - Attestation Statements Document Initiated by Issac: Yes Documenting Scribe: Sri Quiles Provider For Whom Issac is Documenting (Include Credential): Dr. Bud Keyes MD Scribe Attestation: Sri Del Angel scribed for Dr. Bud Keyes MD on 09/16/18 at 2123. Scribe Documentation Reviewed: Yes Provider Attestation: The documentation as recorded by the Sri franco accurately reflects the service I personally performed and the decisions made by me, Dr. Bud Keyes MD Status of Scribrusty Document: Viewed
[2018-09-15 11:51] LABS: ABS Lymphocytes 0.4 10^3/ul (1.0-4.8); ABS Monocytes 0.1 10^3/ul (0-0.8); ABS Neutrophils 4.4 10^3/ul (1.5-7.7); Eosinophil % 0.7 %; Hematocrit 33 % (35-47); Hemoglobin 11.4 g/dL (12.0-16.0); Lymphocyte % 7.7 %; Mean Corpuscular HGB Conc 35 g/dL (31-36); Mean Corpuscular Hemoglobin 28 pg (27-31); Mean Corpuscular Volume 81 fL (80-97); Mean Platelet Volume 7.3 fL (7.4-10.4); Platelet Count 213 10^3/uL (150-450); Red Blood Count 4.06 10^6 /uL (3.70-4.87); Red Cell Distribution Width 14 % (10.5-15); White Blood Count 4.9 10^3/uL (3.5-10.8)
[2018-09-15 12:13] LABS: Urine Appearance Cloudy; Urine Bacteria Absent (Absent); Urine Bilirubin Negative (Negative); Urine Blood 2+ (Negative); Urine Color Amber; Urine Glucose Negative (Negative); Urine Ketones Negative (Negative); Urine Nitrite Positive (Negative); Urine Protein Negative (Negative); Urine Red Blood Cell 3+(>10/hpf) (Absent); Urine Specific Gravity 1.012 (1.010-1.030); Urine Squamous Epithelial Cell Present (Absent); Urine Urobilinogen Negative (Negative); Urine White Blood Cell Trace(0-5/hpf) (Absent)
[2018-09-15 12:15] LABS: Albumin 3.5 g/dL (3.2-5.2); Albumin/Globulin Ratio 1.3 (1-3); BUN/Creatinine Ratio 18.5 (8-20); C Reactive Protein 13.02 mg/L (<8.01); Calcium 8.9 mg/dL (8.6-10.3); EGFR African American 157.3 (>60); Globulin 2.6 g/dL (2-4); Potassium 3.8 mmol/L (3.5-5.0); Total Bilirubin 0.4 mg/dL (0.2-1.0); Total Protein 6.1 g/dL (6.4-8.9)
[2018-09-15 12:17] LABS: Troponin I 0.01 ng/mL (<0.04)
[2018-09-15 12:19] LABS: CKMB ng/mL 1.3 ng/mL (0.6-6.3)
[2018-09-15] MEDS ORDERED: Sulfamethox/Trimethoprim DS 800/160* TAB PO ONE (12:39)
[2018-09-15 13:41] VITALS: BP 113/67
== END 2018-09-15 13:44 | disposition home or self-care (01) ==
LOC: ED 09:36
DX: N39.0 Urinary tract infection, site not specified (principal); C85.90 Non-Hodgkin lymphoma, unspecified, unspecified site
CPT/HCPCS: 36415; 71046; 80053; 81003; 81015; 82550; 82553; 83605; 83880; 84484; 85025; 86140; 87040; 87086; 93005; 99282; A9270-GY

== ENCOUNTER → 2018-10-07 09:14 | Emergency (ER) | payer OTHER ==
[~2018-10-07 09:14] MED LIST changes: +Acetaminophen TAB* 325 MG PO ONE; -Buffered Lidocaine 1% SYRIN* 1 ML/SYRINGE INTRADERM ONE; +NS 0.9% 1000 ML** 1,000 ML IV ONE
--- NOTE | 2018-10-07 09:58 | ED ---
Complex/Multi-Sys Presentation - History Of Current Complaint Chief Complaint: EDUpperRespComplaint Time Seen by Provider: 10/07/18 09:32 Hx Obtained From: Patient - Allergies/Home Medications Allergies/Adverse Reactions: Allergies Allergy/AdvReac Type Severity Reaction Status Date / Time No Known Allergies Allergy Verified 10/07/18 09:16 PMH/Surg Hx/FS Hx/Imm Hx Previously Healthy: Yes Endocrine/Hematology History: Denies: Hx Diabetes Cardiovascular History: Denies: Hx Hypertension, Hx Pacemaker/ICD Respiratory History: Denies: Hx Asthma, Hx Chronic Obstructive Pulmonary Disease (COPD) History: Denies: Hx Dialysis, Hx Renal Disease Sensory History: Denies: Hx Contacts or Glasses, Hx Legally Blind, Hx Deafness, Hx Hearing Aid Opthamlomology History: Denies: Hx Contacts or Glasses, Hx Legally Blind Neurological History: Denies: Hx Dementia Psychiatric History: Reports: Hx Anxiety - Says it has dimished as she's gotten older. Denies: Hx Panic Disorder - Cancer History Cancer Type, Location and Year: NONHODGKINS LYMPHOMA Hx Chemotherapy: Yes Hx Radiation Therapy: No - Surgical History Surgery Procedure, Year, and Place: POWER PORT LEFT CHEST ;. BIOPSIES ; Infectious Disease History: No Infectious Disease History: Denies: Hx Hepatitis, Traveled Outside the [place] in Last 30 Days - Family History Known Family History: Positive: Other - No family history of migraine or related problems. Negative: Cardiac Disease, Hypertension, Diabetes - Social History Occupation: Employed Part-time Lives: With Family Alcohol Use: None Hx Substance Use: No Substance Use Type: Reports: None Hx Tobacco Use: No Smoking Status (MU): Never Smoked Tobacco Have You Smoked in the Last Year: No Review of Systems Positive: Chills. Negative: Fever Eyes: Negative ENT: Negative Cardiovascular: Negative Negative: Palpitations, Chest Pain Positive: Cough. Negative: Shortness Of Breath Gastrointestinal: Other - constipation Negative: Abdominal Pain, Vomiting, Diarrhea Genitourinary: Negative Negative: dysuria Neurological: Negative All Other Systems Reviewed And Are Negative: Yes Physical Exam - Summary Physical Exam Summary: Pt. is a 33 y.o female who presents to the ER for worsening ongoing cough and generalized fatigue for several days. Pt. currently being treated for nonhodgkin 's lymphoma. Pt. is also 30 weeks . Pt. states she has a worsening productive cough. She notes she was recently treated for pneumonia. Pt. notes chills without fever. Pt. denies abd. pain, vaginal discharge or bleeding. Pt currently being treated with chemo. Pt. notes she feels she "has an infection somewhere." Sxs are moderate in severity. No current modifying factors. Triage Information Reviewed: Yes Vital Signs On Initial Exam: Initial Vitals Temp Pulse Resp BP Pulse Ox 98.3 F 122 18 130/84 98 10/07/18 09:17 10/07/18 09:17 10/07/18 09:17 10/07/18 09:17 10/07/18 09:17 Vital Signs Reviewed: Yes Appearance: Positive: Well-Appearing - Pt. sitting up in bed in NAD> Skin: Positive: Warm, Dry Head/Face: Positive: Normal Head/Face Inspection Eyes: Positive: Normal, EOMI, JUNI ENT: Positive: Pharynx normal, TMs normal Neck: Positive: Supple, Nontender, No Lymphadenopathy. Negative: Nuchal Rigidity Respiratory/Lung Sounds: Positive: Other - diminished breath sounds throughout Cardiovascular: Positive: Normal, RRR Abdomen Description: Positive: Nontender, Soft Musculoskeletal: Positive: Normal, Strength/ROM Intact Neurological: Positive: Normal, CN Intact II-III Psychiatric: Positive: Affect/Mood Appropriate Diagnostics - Vital Signs Vital Signs Temp Pulse Resp BP Pulse Ox 10/07/18 09:17 98.3 F 122 18 130/84 98 - Laboratory Result Diagrams: 10/07/18 10:08 10/07/18 10:08 Lab Statement: Any lab studies that have been ordered have been reviewed, and results considered in the medical decision making process. Complex Multi-Symp Course/Dx Course Of Treatment: Pt. presenting for worsening cough and fatigue. She is afebrile with stable VS. Given active chemo treatment and pt;s sxs labs and cxr ordered. Labs shows low WBC and chronic anemia. u/s negative for infection. CXR negative for infiltrate per radiology. Pending BC. On re-exam pt. resting comfortably. Results discussed with oncall onc, Dr. Brownlee who has no futher recommendations or concerns. Pt. dc home to . with OB and onc. WIll return to ER if sxs change or worsen. Pt. understands and agrees with plan. - Diagnoses Provider Diagnoses: Bronchitis, Chronic cough Discharge - Sign-Out/Discharge Documenting (check all that apply): Patient Departure Patient Received Moderate/Deep Sedation with Procedure: No - Discharge Plan Condition: Good Disposition: HOME Patient Education Materials: Constipation (ED), Chronic Cough (ED) Referrals: Toribio Carvalho MD [Primary Care Provider] - Additional Instructions: Schedule a close follow up appointment with Dr. Carvalho Increase fluids and rest Increase fiber in diet Return to ER if symptoms change or worsen - Billing Disposition and Condition Condition: GOOD Disposition: Home
[2018-10-07 10:16] LABS: ABS Lymphocytes 0.4 10^3/ul (1.0-4.8); ABS Monocytes 0.1 10^3/ul (0-0.8); ABS Neutrophils 1.2 10^3/ul (1.5-7.7); Hematocrit 30 % (35-47); Hemoglobin 10.3 g/dL (12.0-16.0); Lymphocyte % 20.9 %; Mean Corpuscular HGB Conc 35 g/dL (31-36); Mean Corpuscular Hemoglobin 28 pg (27-31); Mean Corpuscular Volume 81 fL (80-97); Mean Platelet Volume 6.9 fL (7.4-10.4); Nucleated Red Blood Cells % 0.1; Platelet Count 203 10^3/uL (150-450); Red Blood Count 3.65 10^6 /uL (3.70-4.87); Red Cell Distribution Width 15 % (10-15); White Blood Count 1.7 10^3/uL (3.5-10.8)
[2018-10-07 10:38] LABS: Albumin 3.3 g/dL (3.2-5.2); Albumin/Globulin Ratio 1.1 (1-3); BUN/Creatinine Ratio 26.4 (8-20); C Reactive Protein 25.15 mg/L (<8.01); Calcium 8.6 mg/dL (8.6-10.3); EGFR African American 160.8 (>60); EGFR Non-African American 132.9 (>60); Globulin 2.9 g/dL (2-4); Magnesium 1.9 mg/dL (1.9-2.7); Total Bilirubin 0.4 mg/dL (0.2-1.0); Total Protein 6.2 g/dL (6.4-8.9)
[2018-10-07 12:27] LABS: Urine Appearance Cloudy; Urine Bilirubin Negative (Negative); Urine Blood Negative (Negative); Urine Color Yellow; Urine Glucose 1+(50 mg/dL) (Negative); Urine Ketones Negative (Negative); Urine Nitrite Negative (Negative); Urine Protein Negative (Negative); Urine Urobilinogen Negative (Negative)
[2018-10-07 14:21] VITALS: BP 111/77
== END | disposition home or self-care (01) ==
LOC: ED 09:14
DX: O26.893 Other specified pregnancy related conditions, third trimester (principal); J40 Bronchitis, not specified as acute or chronic; C85.90 Non-Hodgkin lymphoma, unspecified, unspecified site; Z3A.30 30 weeks gestation of pregnancy
CPT/HCPCS: 36415; 71046; 80053; 81003; 83605; 83735; 85025; 86140; 87040; 96360; 99284; A9270-GY; J1642

== ENCOUNTER 2018-10-10 01:33 | Emergency (ER) | payer OTHER ==
[2018-10-10] MEDS ORDERED: Metoclopramide IV* 5 MG/ML 2 ML VIAL IV SLOW PU ONE (01:56)
[2018-10-10] MEDS ORDERED: Morphine 4 MG/ML VIAL (1 ml) 4 MG/ML VIAL IV ONE (01:56)
--- NOTE | 2018-10-10 02:03 | ED ---
Throat Pain/Nasal Congestion - HPI Summary HPI Summary: This patient is a 33 year old F presenting to [facility] with a chief complaint of left cheek, jaw and throat pain since yesterday morning. Pain rated 9/10 in severity. She reports pain was unrelieved by Tylenol during the day. She states she took a hydrocodone just prior to coming to the ED. Reports recent cough. Denies fever. Patient was diagnosed with non hodgkins lymphoma in July 2018 and is currently on chemotherapy. Patient is 30 weeks . - History of Current Complaint Chief Complaint: EDGeneral Time Seen by Provider: 10/10/18 01:42 Hx Obtained From: Patient Onset/Duration: Lasting Days Severity: Severe - Allergies/Home Medications Allergies/Adverse Reactions: Allergies Allergy/AdvReac Type Severity Reaction Status Date / Time No Known Allergies Allergy Verified 10/07/18 09:16 PMH/Surg Hx/FS Hx/Imm Hx Endocrine/Hematology History: Denies: Hx Diabetes Cardiovascular History: Denies: Hx Hypertension, Hx Pacemaker/ICD Respiratory History: Denies: Hx Asthma, Hx Chronic Obstructive Pulmonary Disease (COPD) History: Denies: Hx Dialysis, Hx Renal Disease Sensory History: Denies: Hx Contacts or Glasses, Hx Legally Blind, Hx Deafness, Hx Hearing Aid Opthamlomology History: Denies: Hx Contacts or Glasses, Hx Legally Blind Neurological History: Denies: Hx Dementia Psychiatric History: Reports: Hx Anxiety - Says it has dimished as she's gotten older. Denies: Hx Panic Disorder - Cancer History Cancer Type, Location and Year: NONHODGKINS LYMPHOMA Hx Chemotherapy: Yes Hx Radiation Therapy: No - Surgical History Surgery Procedure, Year, and Place: POWER PORT LEFT CHEST ;. BIOPSIES ; Infectious Disease History: No Infectious Disease History: Denies: Hx Hepatitis, Traveled Outside the [place] in Last 30 Days - Family History Known Family History: Positive: Other - No family history of migraine or related problems. Negative: Cardiac Disease, Hypertension, Diabetes - Social History Alcohol Use: None Hx Substance Use: No Substance Use Type: Reports: None Hx Tobacco Use: No Smoking Status (MU): Never Smoked Tobacco Have You Smoked in the Last Year: No Review of Systems Negative: Fever Positive: Sore Throat - neck and cheek pain Positive: Cough All Other Systems Reviewed And Are Negative: Yes Physical Exam - Summary Physical Exam Summary: VITAL SIGNS: Reviewed. GENERAL: Patient is a well-developed and nourished female who is lying comfortable in the stretcher. Patient is not in any acute respiratory distress. HEAD AND FACE: No signs of trauma. No ecchymosis, hematomas or skull depressions. No sinus tenderness. EYES: PERRLA, EOMI x 2, No injected conjunctiva, no nystagmus. EARS: Hearing grossly intact. Ear canals and tympanic membranes are within normal limits. MOUTH: Oropharynx within normal limits. NECK: Supple, trachea is midline, no adenopathy, no JVD, no carotid bruit, no c- spine tenderness, neck with full ROM CHEST: Symmetric, no tenderness at palpation LUNGS: Clear to auscultation bilaterally. No wheezing or crackles. CVS: Regular rate and rhythm, S1 and S2 present, no murmurs or gallops appreciated. ABDOMEN: Soft, non-tender. No signs of distention. No rebound no guarding, and no masses palpated. Bowel sounds are normal. Fundus consistent with 30 week EXTREMITIES: FROM in all major joints, no edema, no cyanosis or clubbing. NEURO: Alert and oriented x 3. No acute neurological deficits. Speech is normal and follows commands. SKIN: Dry and warm Triage Information Reviewed: Yes Vital Signs On Initial Exam: Initial Vitals Temp Pulse Resp BP Pulse Ox 98.6 F 120 20 138/77 97 10/10/18 01:35 10/10/18 01:35 10/10/18 01:35 10/10/18 01:35 10/10/18 01:35 Vital Signs Reviewed: Yes Diagnostics - Vital Signs Vital Signs Temp Pulse Resp BP Pulse Ox 10/10/18 01:35 98.6 F 120 20 138/77 97 - Laboratory Result Diagrams: 10/10/18 02:10 10/10/18 02:10 Lab Statement: Any lab studies that have been ordered have been reviewed, and results considered in the medical decision making process. EENT Course/Dx - Course Course Of Treatment: 33 year old F presenting to [facility] with a chief complaint of left cheek, jaw and throat pain since yesterday morning. History of nonhodgkins lymphoma. Absolute neuts of 0.3. Patient is given 4mg Morphine and 10mg Reglan. Patient is afebrile. Rapid strep is negative. Patient will be discharged home to cointure pain managment at home and will folow up with oncologist on Thursday. - Diagnoses Provider Diagnoses: Sore throat Discharge - Sign-Out/Discharge Documenting (check all that apply): Patient Departure - discharge Patient Received Moderate/Deep Sedation with Procedure: No - Discharge Plan Condition: Stable Disposition: HOME Patient Education Materials: Strep Throat (ED) Referrals: Toribio Carvalho MD [Primary Care Provider] - 2 Days Additional Instructions: You do not have strep throat. Follow up with your oncologist on Thursday. RETURN TO THE EMERGENCY DEPARTMENT FOR CHANGING OR WORSENING SYMPTOMS. - Attestation Statements Document Initiated by Scribe: Yes Documenting Scribe: Roz Mercado Provider For Whom Scribe is Documenting (Include Credential): Alejandro Durant MD Scribe Attestation: Roz Del Angel, scribed for Alejandro Durant MD on 10/10/18 at 0319. Status of Scribe Document: Ready
[2018-10-10 02:20] LABS: Hematocrit 28 % (35-47); Hemoglobin 9.9 g/dL (12.0-16.0); Mean Corpuscular HGB Conc 35 g/dL (31-36); Mean Corpuscular Hemoglobin 29 pg (27-31); Mean Corpuscular Volume 81 fL (80-97); Mean Platelet Volume 7.1 fL (7.4-10.4); Platelet Count 217 10^3/uL (150-450); Red Blood Count 3.48 10^6 /uL (3.70-4.87); Red Cell Distribution Width 16 % (10-15)
[2018-10-10 02:30] LABS: Rapid Strep Molecular Negative (Negative)
[2018-10-10 02:35] LABS: Albumin 3.3 g/dL (3.2-5.2); BUN/Creatinine Ratio 16.9 (8-20); Calcium 8.6 mg/dL (8.6-10.3); EGFR Non-African American 117.4 (>60); Globulin 3.2 g/dL (2-4); Potassium 3.5 mmol/L (3.5-5.0); Total Bilirubin 0.8 mg/dL (0.2-1.0); Total Protein 6.5 g/dL (6.4-8.9)
[2018-10-10 03:10] LABS: ABS Lymphocytes 0.4 10^3/ul (1.0-4.8); ABS Monocytes 0.3 10^3/ul (0-0.8); Eosinophil % 1.6 %; Lymphocyte % 38.6 %; Nucleated Red Blood Cells % 0.3
[2018-10-10 03:12] LABS: ABS Neutrophils 0.3 10^3/ul (1.5-7.7)
[2018-10-10 03:29] VITALS: BP 107/79
== END 2018-10-10 03:45 | disposition home or self-care (01) ==
LOC: ED 01:33
DX: O26.893 Other specified pregnancy related conditions, third trimester (principal); J02.9 Acute pharyngitis, unspecified; C85.90 Non-Hodgkin lymphoma, unspecified, unspecified site; Z3A.30 30 weeks gestation of pregnancy
CPT/HCPCS: 36415; 80053; 85025; 87651; 96374; 96375; 99283; J1642; J2270; J2765

== ENCOUNTER 2018-10-11 03:25 | Emergency (ER) | payer OTHER ==
--- NOTE | 2018-10-11 03:50 | ED ---
Throat Pain/Nasal Congestion - HPI Summary HPI Summary: Patient is a 33 y/o F presenting to ED with complaints of left jaw pain with radiation to left face. She reports temp of 99 F today and notes that she is typically around 97 F. Patient took Tylenol two hours ago, 1500 mg. In room, temp is 98.2 F. Patient had been seen yesterday for similar Sx but reports that pain has exacerbated. Patient was diagnosed with non hodgkins lymphoma in July 2018 and is currently on chemotherapy. Patient is 30 weeks . On triage, pain is rated 9/10. Nothing is noted to aggravate/alleviate Sx. Home medications and allergies are reviewed. - History of Current Complaint Chief Complaint: EDHeadache Time Seen by Provider: 10/11/18 03:45 Hx Obtained From: Patient Onset/Duration: Still Present Severity: Severe Associated Signs And Symptoms: Positive: Negative Cough: None - Allergies/Home Medications Allergies/Adverse Reactions: Allergies Allergy/AdvReac Type Severity Reaction Status Date / Time No Known Allergies Allergy Verified 10/11/18 03:45 PMH/Surg Hx/FS Hx/Imm Hx Endocrine/Hematology History: Denies: Hx Diabetes Cardiovascular History: Denies: Hx Hypertension, Hx Pacemaker/ICD Respiratory History: Denies: Hx Asthma, Hx Chronic Obstructive Pulmonary Disease (COPD) History: Denies: Hx Dialysis, Hx Renal Disease Sensory History: Denies: Hx Contacts or Glasses, Hx Legally Blind, Hx Deafness, Hx Hearing Aid Opthamlomology History: Denies: Hx Contacts or Glasses, Hx Legally Blind Neurological History: Denies: Hx Dementia Psychiatric History: Reports: Hx Anxiety - Says it has dimished as she's gotten older. Denies: Hx Panic Disorder - Cancer History Cancer Type, Location and Year: NONHODGKINS LYMPHOMA Hx Chemotherapy: Yes Hx Radiation Therapy: No - Surgical History Surgery Procedure, Year, and Place: POWER PORT LEFT CHEST ;. BIOPSIES ; Infectious Disease History: No Infectious Disease History: Denies: Hx Hepatitis, Traveled Outside the [place] in Last 30 Days - Family History Known Family History: Positive: Other - No family history of migraine or related problems. Negative: Cardiac Disease, Hypertension, Diabetes - Social History Alcohol Use: None Hx Substance Use: No Substance Use Type: Reports: None Hx Tobacco Use: No Smoking Status (MU): Never Smoked Tobacco Have You Smoked in the Last Year: No Review of Systems Negative: Fever Musculoskeletal: Other - POSITIVE - LEFT JAW PAIN All Other Systems Reviewed And Are Negative: Yes Physical Exam - Summary Physical Exam Summary: VITAL SIGNS: Reviewed. GENERAL: Patient is a well-developed and nourished female who is lying comfortable in the stretcher. Patient is not in any acute respiratory distress. HEAD AND FACE: No signs of trauma. No ecchymosis, hematomas or skull depressions. No sinus tenderness. EYES: PERRLA, EOMI x 2, No injected conjunctiva, no nystagmus. EARS: Hearing grossly intact. Ear canals and tympanic membranes are within normal limits. MOUTH: Oropharynx within normal limits. NECK: Supple, trachea is midline, no adenopathy, no JVD, no carotid bruit, no c- spine tenderness, neck with full ROM CHEST: Symmetric, no tenderness at palpation LUNGS: Clear to auscultation bilaterally. No wheezing or crackles. CVS: Regular rate and rhythm, S1 and S2 present, no murmurs or gallops appreciated. ABDOMEN: Soft, non-tender. No signs of distention. No rebound no guarding, and no masses palpated. Bowel sounds are normal. Fundus level of 30 weeks. EXTREMITIES: FROM in all major joints, no edema, no cyanosis or clubbing. NEURO: Alert and oriented x 3. No acute neurological deficits. Speech is normal and follows commands. SKIN: Dry and warm Triage Information Reviewed: Yes Vital Signs On Initial Exam: Initial Vitals Temp Pulse Resp BP Pulse Ox 97.8 F 117 18 130/87 96 10/11/18 03:29 10/11/18 03:29 10/11/18 03:29 10/11/18 03:29 10/11/18 03:29 Vital Signs Reviewed: Yes Diagnostics - Vital Signs Vital Signs Temp Pulse Resp BP Pulse Ox 10/11/18 03:29 97.8 F 117 18 130/87 96 - Laboratory Result Diagrams: 10/11/18 04:21 10/11/18 04:22 Lab Statement: Any lab studies that have been ordered have been reviewed, and results considered in the medical decision making process. EENT Course/Dx - Course Course Of Treatment: Patient is a 33 y/o F presenting to ED with complaints of left jaw pain with radiation to left face. She reports temp of 99 F today and notes that she is typically around 97 F. Patient took Tylenol two hours ago, 1500 mg. In room, temp is 98.2 F. Patient had been seen yesterday for similar Sx but reports that pain has exacerbated. Patient was diagnosed with non hodgkins lymphoma in July 2018 and is currently on chemotherapy. Patient is 30 weeks . On physical exam, fundus level of 30 weeks. Labs showed WBC 1.3 , RBC 3.5, Hgb 10.1, Hct 29, RDW 16, MPV 7.1, absolute neuts 0.2, absolute lymphs 0.5, sodium 133, carbon dioxide 21, alk phos 229, trop 0.02, CRP 131.74. During ED course, patient received reglan 10 mg IV, lactated Ringers 1000 ml bag, and fentanyl, 50 mcg IV SLOW PU. Patient is signed out to Dr. Arora at 0700 10/11/18 shift change pending results of maxillofacial CT. - Diagnoses Provider Diagnoses: Jaw pain, Lymphoma Discharge - Sign-Out/Discharge Documenting (check all that apply): Sign-Out Patient Signing out patient TO: Robbin Arora - Discharge Plan Condition: Stable Referrals: Toribio Carvalho MD [Primary Care Provider] - - Attestation Statements Document Initiated by Scribe: Yes Documenting Scribe: SATISH MCCLELLAN Provider For Whom Scribe is Documenting (Include Credential): BEATA SANDERS MD Scribe Attestation: SATISH Del Angel, scribed for BEATA SANDERS MD on 10/11/18 at 0655.
[2018-10-11] MEDS ORDERED: Metoclopramide IV* 5 MG/ML 2 ML VIAL IV SLOW PU ONE (03:57)
[2018-10-11] MEDS ORDERED: Morphine 4 MG/ML VIAL (1 ml) 4 MG/ML VIAL IV ONE (03:57)
[2018-10-11] MEDS ORDERED: Lactated Ringers 1000 ML Bag* 1,000 ML IV ONE (03:59)
[2018-10-11 04:32] LABS: Hematocrit 29 % (35-47); Hemoglobin 10.1 g/dL (12.0-16.0); Mean Corpuscular HGB Conc 35 g/dL (31-36); Mean Corpuscular Hemoglobin 29 pg (27-31); Mean Corpuscular Volume 82 fL (80-97); Mean Platelet Volume 7.1 fL (7.4-10.4); Platelet Count 224 10^3/uL (150-450); Red Cell Distribution Width 16 % (10-15); White Blood Count 1.3 10^3/uL (3.5-10.8)
[2018-10-11 04:41] LABS: Activated Partial Thrombo Time 31.7 seconds (26.0-38.0); INR 0.98 (0.82-1.09)
[2018-10-11] MEDS ORDERED: fentaNYL* 50 MCG/ML 2 ML VIAL (100 MCG VIAL) IV SLOW PU ONE (04:47)
[2018-10-11 04:48] LABS: Albumin 3.4 g/dL (3.2-5.2); Albumin/Globulin Ratio 1.1 (1-3); BUN/Creatinine Ratio 14.5 (8-20); C Reactive Protein 131.74 mg/L (<8.01); Calcium 8.7 mg/dL (8.6-10.3); EGFR African American 134.1 (>60); EGFR Non-African American 110.9 (>60); Globulin 3.1 g/dL (2-4); Potassium 3.6 mmol/L (3.5-5.0); Total Bilirubin 0.9 mg/dL (0.2-1.0); Total Protein 6.5 g/dL (6.4-8.9)
[2018-10-11 04:50] LABS: Troponin I 0.02 ng/mL (<0.04)
[2018-10-11] MEDS ORDERED: Iohexol 300* (CONTRAST) 10 ML SDV IV ONE (04:51)
[2018-10-11 04:54] LABS: ABS Lymphocytes 0.5 10^3/ul (1.0-4.8); ABS Monocytes 0.5 10^3/ul (0-0.8); Eosinophil % 1.5 %; Lymphocyte % 39.2 %; Nucleated Red Blood Cells % 0.1
[2018-10-11 04:56] LABS: ABS Neutrophils 0.2 10^3/ul (1.5-7.7)
--- NOTE | 2018-10-11 07:41 | ED ---
Progress - Progress Note Progress Note: This pt was signed out by Dr. Durant at shift change on 10/11/18 at 07:00, pending disposition, awaiting maxillofacial CT. Maxillofacial CT, as read by radiologist IMPRESSION: 1. No evidence of abscess. 2. Left ethmoid, maxillary and sphenoid sinusitis. Dr. Aroar has reviewed this report. Physical Exam: Constitutional: Well-developed, Well-nourished, Alert. (-) Distressed Skin: Warm, Dry HENT: Normocephalic; Atraumatic. Left maxillary sinus tenderness. Normal oral exam. No dental abscess. Eyes: Conjunctiva normal Neck: Musculoskeletal ROM normal neck. (-) JVD, (-) Stridor, (-) Tracheal deviation Cardio: Rhythm regular, rate normal, Heart sounds normal; Intact distal pulses; The pedal pulses are 2+ and symmetric. Radial pulses are 2+ and symmetric. (-) Murmur Pulmonary/Chest wall: Effort normal. (-) Respiratory distress, (-) Wheezes, (-) Rales Abd: Soft, (-) Tenderness, (-) Distension, (-) Guarding, (-) Rebound Musculoskeletal: (-) Edema Lymph: (-) Cervical adenopathy Neuro: Alert, Oriented x3 Psych: Mood and affect Normal Re-Evaluation - Re-Evaluation First Eval Re-Evaluation Time: 08:34 Comment: She reports left jaw, mouth, and face pain. Pt also notes headache, cough for the past 1 month, and feeling hot. Denies rhinorrhea. She states she has thrush that has not completely resolved yet. Denies seasonal allergies. She has hx of non hodgkins lymphoma. Pt is currently about 30 weeks , . Reviewed CT results with the pt. Plan to consult with oncology. Second Eval Re-Evaluation Time: 09:01 Comment: Discussed discharge plan and follow up with oncology with the pt. She will be given a prescription for Augmentin. Course/Dx - Course Course Of Treatment: Pt is a 33 y/o female presenting to the ED c/o left jaw, mouth, and facial pain. Pt is currently 30 weeks , . She has hx of Denies rhinorrhea. Her pain control options are limited due to current state of . We will start with antibiotics. Discused the case with Evangelina Alanis NP who is covering for oncology, and agrees with Augmentin. She will see the pt in the office in the next 48 hours. Pt is recommended to take Tylenol for the pain and use a heating pad as well. I am reluctant to do capsaicin cream due to proximity to the eye. Patient was advised to prop herself up with a wedge pillow and sleep on the right side. Return to the ED instructions were also given. Patient understands and agrees. - Diagnoses Provider Diagnoses: Left maxillary sinusitis - Provider Notifications Discussed Care Of Patient With: Evangelina Alanis - oncology Time Discussed With Above Provider: 08:55 Instructed by Provider To: Other - Discused the case with Evangelina Alanis NP who is covering for oncology, and agrees with Augmentin. She will see the pt in the office in the next 48 hours. Discharge - Sign-Out/Discharge Documenting (check all that apply): Patient Departure - Discharge home, Receiving Sign-Out Receiving patient FROM: Alejandro Durant Patient Received Moderate/Deep Sedation with Procedure: No - Discharge Plan Condition: Stable Disposition: HOME Prescriptions: Amoxicillin/Clavulanate TAB* [Augmentin TAB 875*] 875 mg PO BID #14 tab Amoxicillin/Clavulanate TAB* [Augmentin TAB 875*] 875 mg PO BID #14 tab Patient Education Materials: Sinusitis (ED) Referrals: Toribio Carvalho MD [Primary Care Provider] - 2 Days Evangelina Alanis NP [Medical Doctor] - Additional Instructions: Recommend Tylenol and heating pad for the pain. Use wedge pillow and sleep on the right side. Please follow up with Dr. Carvalho, oncologist, in the next 48 hours. RETURN TO THE EMERGENCY DEPARTMENT FOR CHANGING OR WORSENING SYMPTOMS. - Attestation Statements Document Initiated by Scribe: Yes Documenting Scribe: Trista Navas Provider For Whom Scribe is Documenting (Include Credential): Robbin Arora MD Scribe Attestation: Trista Del Angel, scribed for Robbin Arora MD on 10/11/18 at 0907. Status of Scribe Document: Ready
[2018-10-11 07:55] VITALS: BP 113/70
[2018-10-11] MEDS ORDERED: Acetaminophen TAB* 325 MG PO ONE (07:57)
[2018-10-11] MEDS ORDERED: Amoxicillin/Clavulanate TAB* 875 MG PO ONE (08:42)
== END 2018-10-11 09:55 | disposition home or self-care (01) ==
LOC: ED 03:25
DX: R68.84 Jaw pain (principal); C85.90 Non-Hodgkin lymphoma, unspecified, unspecified site; J32.2 Chronic ethmoidal sinusitis; J32.0 Chronic maxillary sinusitis; J32.3 Chronic sphenoidal sinusitis
CPT/HCPCS: 36415; 70487; 80053; 83605; 84484; 85025; 85060; 85610; 85730; 86140; 87040; 96374; 96375; 99284; A9270-GY; J1642; J2765; J3010; Q9967

== ENCOUNTER 2019-01-28 14:32 | Observation (INO) | payer OTHER ==
[2019-01-28] MEDS ORDERED: NS 0.9% 1000 ML** 1,000 ML IV ONE ×2 (15:12→15:33)
[2019-01-28] MEDS ORDERED: Diltiazem IV push/loading dose 5 MG/ML 5 ML vial (25 mg) IV SLOW PU ONE (15:18)
--- NOTE | 2019-01-28 15:19 | ED ---
HPI Chest Pain - HPI Summary HPI Summary: This pt is a 33 y/o female, with hx of nonhodgkin's lymphoma, presenting to [facility] c/o chest pain since this morning. Pt states she had radiation today at 11 :30 but notes she had chest pain prior to that. After radiation today, pt began to feel palpitations and lightheadedness. Additionally notes her face felt heavy. She sat down and began to feel more lightheaded, like feeling of passing out. Denies SOB, calf pain. Pt reports she ended chemotherapy on 11/30/18 and began radiation on 01/24/19 (4 days ago). Her oncologist is Dr. Carvalho. - History of Current Complaint Chief Complaint: EDChestPainROMI Hx Obtained From: Patient Hx Last Menstrual Period: FEB 2018 Onset/Duration: Started Hours Ago, Still Present Timing: Lasting Hours Pain Intensity: 0 Pain Scale Used: 0-10 Numeric Chest Pain Location: Mid Sternal Chest Pain Radiates: No Aggravating Factor(s): Nothing Alleviating Factor(s): Nothing Associated Signs and Symptoms: Positive: Chest Pain, Lightheadedness, Palpitations, Other: - POSITIVE: facial heaviness. Negative: Shortness of Breath, Fever, Chills, Calf Pain/Swelling - Additional Pertinent History Primary Care Physician: [id number] - Allergy/Home Medications Allergies/Adverse Reactions: Allergies Allergy/AdvReac Type Severity Reaction Status Date / Time No Known Allergies Allergy Verified 12/18/18 20:03 Home Medications: Home Medications Ibuprofen TAB* [Advil TAB*] 200 mg PO Q6H PRN 01/28/19 [History Confirmed ] Magnesium Oxide TAB* [MagOx 400 TAB*] 400 mg PO DAILY 01/28/19 [History Confirmed 01/28/19] Turmeric/Turmeric Root Extract [Turmeric 450-50 mg Capsule] 1 each PO DAILY 08/13 [History Confirmed 01/28/19] PMH/Surg Hx/FS Hx/Imm Hx Endocrine/Hematology History: Denies: Hx Diabetes Cardiovascular History: Denies: Hx Hypertension, Hx Pacemaker/ICD Respiratory History: Denies: Hx Asthma, Hx Chronic Obstructive Pulmonary Disease (COPD) History: Denies: Hx Dialysis, Hx Renal Disease Sensory History: Denies: Hx Contacts or Glasses, Hx Legally Blind, Hx Deafness, Hx Hearing Aid Opthamlomology History: Denies: Hx Contacts or Glasses, Hx Legally Blind Neurological History: Denies: Hx Dementia Psychiatric History: Reports: Hx Anxiety - Says it has dimished as she's gotten older. Denies: Hx Panic Disorder - Cancer History Cancer Type, Location and Year: NONHODGKINS LYMPHOMA Hx Chemotherapy: Yes Hx Radiation Therapy: No - Surgical History Surgery Procedure, Year, and Place: POWER PORT LEFT CHEST,. BIOPSIES Infectious Disease History: No Infectious Disease History: Denies: Hx Hepatitis, Traveled Outside the [place] in Last 30 Days - Family History Known Family History: Positive: Other - No family history of migraine or related problems. Negative: Cardiac Disease, Hypertension, Diabetes - Social History Alcohol Use: None Hx Substance Use: No Substance Use Type: Reports: None Hx Tobacco Use: No Smoking Status (MU): Never Smoked Tobacco Have You Smoked in the Last Year: No Review of Systems Negative: Fever, Chills Positive: Palpitations, Chest Pain Negative: Shortness Of Breath Negative: Other - NEGATIVE: calf pain Neurological: Other - POSITIVE: heaviness on face, lightheadedness All Other Systems Reviewed And Are Negative: Yes Physical Exam - Summary Physical Exam Summary: VITAL SIGNS: Reviewed. GENERAL: Patient is a well-developed and nourished female who is lying comfortable in the stretcher. Patient is not in any acute respiratory distress. HEAD AND FACE: No signs of trauma. No ecchymosis, hematomas or skull depressions. No sinus tenderness. EYES: PERRLA, EOMI x 2, No injected conjunctiva, no nystagmus. EARS: Hearing grossly intact. Ear canals and tympanic membranes are within normal limits. MOUTH: Oropharynx within normal limits. NECK: Supple, trachea is midline, no adenopathy, no JVD, no carotid bruit, no c- spine tenderness, neck with full ROM. CHEST: Symmetric, no tenderness at palpation. LUNGS: Clear to auscultation bilaterally. No wheezing or crackles. CVS: Tachycardic rate but intermittent regular and irregular rhythm, S1 and S2 present, no murmurs or gallops appreciated. ABDOMEN: Soft, non-tender. No signs of distention. No rebound, no guarding, and no masses palpated. Bowel sounds are normal. EXTREMITIES: FROM in all major joints, no edema, no cyanosis or clubbing. NEURO: Alert and oriented x 3. No acute neurological deficits. Speech is normal and follows commands. SKIN: Dry and warm. Triage Information Reviewed: Yes Vital Signs On Initial Exam: Initial Vitals Temp Pulse Resp BP Pulse Ox 97.2 F 126 30 102/72 100 01/28/19 14:39 01/28/19 14:39 01/28/19 14:39 01/28/19 14:39 01/28/19 14:39 Vital Signs Reviewed: Yes Procedures - Sedation Patient Received Moderate/Deep Sedation with Procedure: No Diagnostics - Vital Signs Vital Signs Temp Pulse Resp BP Pulse Ox 01/28/19 14:39 97.2 F 126 30 102/72 100 - Laboratory Result Diagrams: 01/28/19 15:25 01/28/19 15:25 Lab Statement: Any lab studies that have been ordered have been reviewed, and results considered in the medical decision making process. - Radiology Chest XR Radiology Interpretation Completed By: Radiologist Summary of Radiographic Findings: IMPRESSION: No active cardiopulmonary disease. Dr. Keyes has reviewed this report. - EKG 14:40 Cardiac Rate: Tachycardia - at 128 bpm EKG Rhythm: Sinus Tachycardia Summary of EKG Findings: Sinus tachycardia at 128 bpm with multi focal PACs, per Dr. Kimble lean manager. 15:12 Cardiac Rate: Tachycardia - at 111 bpm EKG Rhythm: Sinus Tachycardia Summary of EKG Findings: Sinus tachycardia at 111 bpm with multifocal PACs as per Dr. Kimble, lean manager. Chest Pain Course/Dx - Course Assessment/Plan: This pt is a 33 y/o female, with hx of non hodgkin's lymphoma, presenting [place] [facility] c/o chest pain since this morning. Pt states she had radiation today at 11:30 but notes she had chest pain prior to that. After radiation today, pt began to feel palpitations and lightheadedness. Additionally notes her face felt heavy. She sat down and began to feel lightheaded , like feeling of passing out. Denies SOB, calf pain. Pt reports she ended chemotherapy on 11/30/18 and began radiation on 01/24/19 (4 days ago). Her oncologist is Dr. Carvalho. Blood work without any significant abnormality, except for alkaline phosphatase of 110, and troponin 0.13. The d-dimer is less than 200 therefore, no suspicion for a PE. EKG was discussed with Dr. Kimble from cardiology and he reports that the patient has some multifocal atrial tachycardia, he does not recommend Cardiazem. He stated beta tere and monitor appropriately. However the patient is hypotensive therefore she was given 2 L of IV fluids. The rate has improved and is in the range between 100 to 120. Since the patients troponin is elevated possibly due to the increasing HR and since the patient doesnt have any chest pain. Patient was given an aspirin. At this time discussed my physical exam and findings with Dr. Carvalho, oncologist, who recommends for the patient to be admitted to the hospitalist services. I discussed my physical exam and findings with Dr. White from the hospitalist services was accepted the patient for admission. - Diagnoses Provider Diagnoses: Multifocal atrial tachycardia, Elevated troponin, Dizziness - Provider Notifications Discussed Care Of Patient With: Maksim Kimble Time Discussed With Above Provider: 15:25 Instructed by Provider To: Other - Discussed the case with Dr. Kimble, lean manager, who does not think EKG shows afib, but rather multi focal PACs. [ 16:49] Discussed with Dr. Carvalho, oncologist, who recommends admission to the hospitalist. [17:40] Case discussed with Dr. White, hospitalist, who accepted the pt for admission. Discharge ED - Sign-Out/Discharge Documenting (check all that apply): Patient Departure - [place] [facility] [place] Discharge Plan Condition: Stable Disposition: ADMITTED TO [facility] Referrals: Toribio Carvalho MD [Primary Care Provider] - - Billing Disposition and Condition Condition: STABLE Disposition: Admitted to [facility] - Attestation Statements Document Initiated by Issac: Yes Documenting Scribe: Trista Navas Provider For Whom Issac is Documenting (Include Credential): Bud Keyes MD Scribe Attestation: I, Trista Navas, scribed for Bud Keyes MD on 01/28/19 at 1829. Scribe Documentation Reviewed: Yes Provider Attestation: The documentation as recorded by the Trista franco accurately reflects the service I personally performed and the decisions made by me, Bud Keyes MD Status of Scribe Document: Viewed
[2019-01-28 15:59] LABS: ABS Eosinophils 0.5 10^3/ul (0-0.6); ABS Lymphocytes 1.1 10^3/ul (1.0-4.8); ABS Monocytes 0.4 10^3/ul (0-0.8); Eosinophil % 8.2 %; Hematocrit 36 % (35-47); Hemoglobin 12.1 g/dL (12.0-16.0); Lymphocyte % 18.2 %; Mean Corpuscular HGB Conc 33 g/dL (31-36); Mean Corpuscular Hemoglobin 27 pg (27-31); Mean Corpuscular Volume 82 fL (80-97); Platelet Count 231 10^3/uL (150-450); Red Blood Count 4.45 10^6 /uL (3.70-4.87); Red Cell Distribution Width 15 % (10-15)
[2019-01-28 16:15] LABS: INR 0.95 (0.82-1.09)
[2019-01-28 16:20] LABS: Urine Appearance Clear; Urine Bacteria Absent (Absent); Urine Bilirubin Negative (Negative); Urine Blood Negative (Negative); Urine Color Yellow; Urine Glucose Negative (Negative); Urine Ketones Negative (Negative); Urine Nitrite Negative (Negative); Urine Protein Negative (Negative); Urine Red Blood Cell Absent (Absent); Urine Specific Gravity 1.009 (1.010-1.030); Urine Squamous Epithelial Cell Present (Absent); Urine Transitional Epithelial Present (Absent); Urine Urobilinogen Negative (Negative); Urine White Blood Cell 3+(>20/hpf) (Absent)
[2019-01-28 16:23] LABS: Albumin 3.9 g/dL (3.2-5.2); Albumin/Globulin Ratio 1.6 (1-3); BUN/Creatinine Ratio 23.6 (8-20); Calcium 9.2 mg/dL (8.6-10.3); EGFR African American 112.9 (>60); EGFR Non-African American 93.3 (>60); Globulin 2.5 g/dL (2-4); Potassium 3.9 mmol/L (3.5-5.0); Total Bilirubin 0.3 mg/dL (0.2-1.0); Total Protein 6.4 g/dL (6.4-8.9)
[2019-01-28 16:24] LABS: CKMB ng/mL 2.7 ng/mL (0.6-6.3)
[2019-01-28 16:26] LABS: Troponin I 0.13 ng/mL (<0.04)
[2019-01-28 16:27] LABS: HCG Pregnancy 1.41 mIU/mL
[2019-01-28 16:34] LABS: TSH (Thyroid Stimulating Horm) 1.24 mcIU/mL (0.34-5.60)
[2019-01-28 18:30] LABS: Troponin I 0.12 ng/mL (<0.04)
[2019-01-28] MEDS ORDERED: Acetaminophen TAB* 325 MG PO PRN (18:35)
[2019-01-28] MEDS ORDERED: Ondansetron INJ* 2 MG/ML VIAL IV PRN (18:35)
[2019-01-28] MEDS ORDERED: Metoprolol Tartrate IV* 1 MG/ML 5 ML VIAL IV ONE (18:40)
[2019-01-28] MEDS ORDERED: Ibuprofen TAB* 200 MG PO PRN (18:41)
[2019-01-28] MEDS ORDERED: Digoxin IV* 0.5 MG/2 ML AMP (0.25 MG/ML) IV SLOW PU ONE (18:42)
[2019-01-28] MEDS ORDERED: Lactated Ringers 1000 ML Bag* 1,000 ML IV SCH (19:00)
[2019-01-28 19:18] LABS: C Reactive Protein 1.64 mg/L (<8.01)
[2019-01-28] MEDS ORDERED: Enoxaparin(*) 40 MG/0.4 ML SYR SUBCUT SCH (20:00)
[2019-01-28] MEDS: NS 0.9% 1000 ML** 1,000 ML IV SCH (21:15)
--- NOTE | 2019-01-28 22:04 | HP ---
CC: Dr. Toribio Carvalho * ADMISSION HISTORY AND PHYSICAL: DATE OF ADMISSION: 01/28/19 PRIMARY CARE PROVIDER: Dr. Toribio Carvalho. MY ATTENDING WHILE IN THE HOSPITAL: Dr. Trista Watson.* (DICTATED BY JERAMIE ETIENNE) HISTORY OF PRESENT ILLNESS: Ms. Capps is a 33-year-old female with past medical history significant for large B-cell lymphoma, previously having undergone chemotherapy, which ended in November and is now undergoing radiation therapy, she just had 4 radiation treatments at this point, her most recent one being this morning. The patient this morning was feeling in her normal state of health, but then suddenly began to feel lightheaded while she was driving. She has had 2 cups of coffee before this began. The patient used no other medications and had no other changes to her diet or treatments. The patient had several episodes where she lost her vision for a second or so, but did not pass out. The patient has had what she describes a sinus infection for 4 months , but has no new symptoms. The patient denies fevers, chills, sick contacts, chest pain, shortness of breath, nausea, or vomiting. The patient has trace swelling in her legs. The patient denies abdominal pain or diarrhea. The patient has been having radiation to her mediastinum. The patient also has a history of receiving anthracycline chemotherapy for her B-cell per her oncologist. The patient took ibuprofen today, but otherwise takes magnesium supplement and no other medications. The patient was seen by her doctor yesterday and told she was dehydrated due to the above symptoms. In the emergency department, the patient was found to be in atrial fibrillation with a rate in the 130s to 140s. The patient was given 1 push of IV diltiazem, which improved her heart rate. The patient has no chest pain except for pain on the left side of her chest where her port was previously inserted. The patient in the emergency department had some hypotension, but that is improving the fluids. The patient is currently asymptomatic except for being very anxious. Due to concern for new-onset AFib, we were asked to evaluate the patient for admission to the hospital. PAST MEDICAL HISTORY: B-cell lymphoma. PAST SURGICAL HISTORY: Port insertion, dog bite repair on her face. MEDICATIONS: 1. Turmeric. 2. Magnesium 400 mg p.o. daily. 3. Ibuprofen 200 mg p.o. q.6 hours as needed. ALLERGIES: No known drug allergies. FAMILY HISTORY: Both the patient's parents are alive and well. The patient has maternal grandmother who is alive and has dementia. The patient had a maternal grandfather who of old age. Paternal grandmother with heart disease and paternal grandfather in accident. SOCIAL HISTORY: The patient does not smoke, drink, or use illicit drugs. 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 The patient is not and has 3 children. The patient's surrogate decision maker will be her mother, Corine Vela. REVIEW OF SYSTEMS: A 14-point review of systems was reviewed and is negative except as above in the HPI. PHYSICAL EXAMINATION GENERAL: The patient is a 33-year-old female who appears stated age, sitting in bed, in no acute distress. VITAL SIGNS: At the time of evaluation, temperature 97.2, pulse rate 102, respiratory rate 22, oxygen saturation 100% on room air, blood pressure 118/100. HEENT: Head: Normocephalic, atraumatic. Sclerae anicteric. No conjunctival injection. Nasal mucosa moist. Oral mucosa moist. No pharyngeal erythema, discharge, or exudate. NECK: Supple, nontender. No lymphadenopathy. No carotid bruits auscultated. No JVD. RESPIRATORY: Clear to auscultation bilaterally. No wheezes, rales, or rhonchi. Good air exchange bilaterally. CARDIAC: Irregularly irregular rhythm. No clicks, murmurs, gallops, or rubs. Pulses are 2+ in the bilateral dorsalis pedis, posterior tibialis, and radial areas. No bilateral lower extremity edema noted. No bilateral calf tenderness. ABDOMEN: Soft, nontender, nondistended. Bowel sounds present and normoactive in all 4 quadrants. No hepatosplenomegaly. No abdominal bruits auscultated. No hepatojugular reflux. GENITOURINARY: No suprapubic or CVA tenderness. NEURO: Cranial nerves II through XII intact. No focal deficits. Alert and oriented x3. PSYCHIATRIC: Pleasant and cooperative. Somewhat anxious. SKIN: Clean, dry, and intact. No rash. DIAGNOSTIC STUDIES/LAB DATA: White blood cell count 6.0, hemoglobin 12.1, platelet count 231. INR 0.95, D-dimer less than 200. Sodium 137, potassium 3.9 , chloride 107, carbon dioxide 25, anion gap 5, BUN 17, creatinine 0.72, glucose 85, calcium 9.2, magnesium 2.0. Bilirubin 0.3, AST 23, ALT 25, alkaline phosphatase 110. CK- MB 2.7. Troponin I 0.13, repeat 0.12. Protein 6.4, albumin 3.9, globulin 2.5, TSH 1.24. Urine is yellow, clear, 3+ leukocyte esterase, 3+ white blood cells, squamous epithelial and transitional cells present, negative bacteria. Studies: EKG initially shows atrial fibrillation with occasional breakthrough sinus beats, rate of 128, QTc 515. Repeat EKG shows rate of 111, QTc of 476, no other significant changes, no ST-segment elevation or depression, no hypertrophy or enlargement. Chest x-ray read as no acute cardiopulmonary disease. ASSESSMENT AND PLAN: Impression: Ms. Capps is a 33-year-old female with past medical history significant for large B-cell lymphoma, undergoing chemo and radiation therapy, who recently started radiation therapy of her mediastinum and this morning began to have symptoms of lightheadedness and presyncope. The patient found to be in rapid atrial fibrillation, admitted to the hospital for rate control, close monitoring and possible cardiac consultation if indicated. 1. Atrial fibrillation with rapid ventricular response. The patient has atrial fibrillation. The patient has no other classic risk factors for atrial fibrillation, but has received in the past anthracycline chemotherapy and has been currently receiving radiation to her mediastinum, though it is a rare complication, pericarditis and myocarditis are known side effects of mediastinal radiation therapy. CRP will be checked as these may also be due to a viral infection as she is complaining of sinus infection; however, this is likely more related to cardiac irritability from her radiation. This case was discussed with Dr. Toribio Carvalho of Oncology, who stated this was a very rare side effect and there is no known treatment that is different than standard treatment. The patient was given diltiazem in the ER and her heart rate is slowing; however, her blood pressure remains on the low side. The patient received 2 L of fluid bolus. The patient will be continued on lactated Ringer' s at 150 mL an hour for blood pressure support. The patient will be loaded with digoxin. The patient will not be started on diltiazem drip at this time. The patient will be given 1 dose of metoprolol tartrate IV if her blood pressure allows. If the patient does not convert or has other issues with hypotension, Cardiology consultation could be considered as could a diltiazem drip. The patient will have an echocardiogram, which will be performed on 01/30/19, if the patient still inpatient. If the patient converts, this could be considered to be done outpatient. The patient's CHADS-VASc score is 1 based only on her gender based on ACC/AHA guidelines. Anticoagulation is not mandatory for this patient given the patient's very young age. The patient will not be anticoagulated at this time. 2. Large B-cell lymphoma. The patient's treatment is obviously placed on hold at this time while she is in the hospital. The patient should follow up outpatient with her radiation oncologist and her oncologist to have risks, benefits discussion for her continued chemotherapy treatment if this ends up being a side effect of her treatment, which I believe it is. 3. DVT prophylaxis: The patient will have Lovenox subcu. 4. FEN: The patient will have a heart-healthy diet without caffeine as it appears caffeine may be inciting factor in her presentation. The patient will have fluids as above. 5. Disposition: The patient will be admitted for observation to this hospital. TIME SPENT: Approximately 60 minutes was spent on the admission of this patient , 30 of which was spent [id number] with the patient obtaining history and physical and discussing treatment plan. This plan was discussed with my attending, Dr. Trista Watson, and she is in agreement. JERAMIE ETIENNE [id number]/[facility] #: [id number] [place]AN[place]
[2019-01-28 22:17] LABS: Troponin I 0.14 ng/mL (<0.04)
[2019-01-29] MEDS ORDERED: Digoxin IV* 0.5 MG/2 ML AMP (0.25 MG/ML) IV SLOW PU ONE (01:00)
[2019-01-29 05:44] LABS: ABS Eosinophils 0.4 10^3/ul (0-0.6); ABS Lymphocytes 0.7 10^3/ul (1.0-4.8); ABS Monocytes 0.3 10^3/ul (0-0.8); Eosinophil % 9.2 %; Hematocrit 33 % (35-47); Hemoglobin 10.9 g/dL (12.0-16.0); Lymphocyte % 15.3 %; Mean Corpuscular HGB Conc 33 g/dL (31-36); Mean Corpuscular Hemoglobin 27 pg (27-31); Mean Corpuscular Volume 82 fL (80-97); Platelet Count 180 10^3/uL (150-450); Red Blood Count 4.05 10^6 /uL (3.70-4.87); Red Cell Distribution Width 14 % (10-15); White Blood Count 4.3 10^3/uL (3.5-10.8)
[2019-01-29 05:54] LABS: BUN/Creatinine Ratio 18.8 (8-20); Blood Urea Nitrogen 15 mg/dL (6-24); CO2 Carbon Dioxide 23 mmol/L (22-32); Calcium 8.4 mg/dL (8.6-10.3); EGFR Non-African American 82.6 (>60); Glucose 93 mg/dL (70-100); Magnesium 1.8 mg/dL (1.9-2.7); Potassium 4.1 mmol/L (3.5-5.0); Sodium 140 mmol/L (135-145)
[2019-01-29 06:05] LABS: Troponin I 0.11 ng/mL (<0.04)
[2019-01-29 06:06] LABS: Anion Gap 4 mmol/L (2-11); Chloride 113 mmol/L (101-111)
[2019-01-29] MEDS ORDERED: Magnesium Sulfate 2 GM IV* 2 GM/50 ML BAG IVPB ONE (07:09)
[2019-01-29 07:15] LABS: Digoxin > 4.6 ng/ml (0.8-2.0)
[2019-01-29 08:07] LABS: Digoxin 3.9 ng/ml (0.8-2.0)
[2019-01-29] MEDS: NS 0.9% 1000 ML** 1,000 ML IV SCH (08:31)
[2019-01-29] MEDS ORDERED: Magnesium Oxide TAB* 400 MG PO SCH (09:00)
[2019-01-29] MEDS ORDERED: Metoprolol Tartrate TAB* 25 MG PO SCH (10:00)
[2019-01-29 11:15] VITALS: BP 126/70
[2019-01-29] MEDS ORDERED: NS 0.9% 1000 ML** 1,000 ML IV SCH (11:42)
[2019-01-29 12:43] LABS: Rheumatoid Factor < 10 IU/mL (<15)
--- NOTE | 2019-01-29 19:46 | DS ---
CC: Dr. Toribio Carvalho * DISCHARGE SUMMARY: DATE OF ADMISSION: 01/28/19 DATE OF DISCHARGE: 01/29/19 PRIMARY CARE PROVIDER: Dr. Toribio Carvalho. MY ATTENDING WHILE IN THE HOSPITAL: Dr. Chong Isbell.* (DICTATED BY JERAMIE ETIENNE) PRIMARY DISCHARGE DIAGNOSES: 1. Atrial fibrillation with rapid ventricular response. 2. Elevated troponin. SECONDARY DISCHARGE DIAGNOSIS: Large B-cell lymphoma, currently undergoing treatment with radiation, status post chemotherapy. STUDIES DONE WHILE IN THE HOSPITAL: EKG from 01/28/19 shows atrial fibrillation with occasional sinus beats, prolonged QT of 515, rate of 128. Repeat EKG from 01/28/19 shows atrial fibrillation. Chest x-ray from 01/28/19 read as no active cardiopulmonary disease. EKG from 01/29/19 read as normal sinus rhythm. No ST segment elevation or depression. Possible PAC. Normal axis. No hypertrophy or enlargement. QTc of 485. MEDICATIONS AT DISCHARGE: 1. Magnesium oxide 400 mg p.o. daily. 2. Ibuprofen 200 mg p.o. q.6 hours as needed. 3. Tylenol 650 mg p.o. q.6 hours as needed. 4. Metoprolol tartrate 25 mg p.o. b.i.d. 5. Turmeric 450/50 one tab p.o. daily. New medications at discharge: 1. Tylenol. 2. Metoprolol. Medications discontinued at discharge: None. HOSPITAL COURSE: This is a brief summary of the patient's presentation. For more details, please see the history and physical from JERAMIE Etienne, on . In brief, the patient is a 33-year-old female with past medical history significant for large B-cell lymphoma, who has been undergoing treatment with chemotherapy up until early November and then recently started radiation therapy of her mediastinum for her B-cell lymphoma. The patient has been feeling relatively well except for chronic complaints of fatigue and muscle aches until on the morning of 01/28/19 she began to feel dizzy, had several episodes where she felt like her vision went black for approximately 1 second at a time. The patient came into the emergency department and was found to be in atrial fibrillation with RVR. The patient had no recent changes to her meds, no recent changes in her diet. The patient did have 2 large cups of coffee which is her routine on the morning right before her symptoms began. The patient in the emergency department was given diltiazem push and had decrease in her heart rate from initially the 140s to 180s down to the 110s with some breakthrough sinus beats as above. The patient's blood pressure dropped down to as low as 83 /69. The patient was given 2 IV boluses. The patient was admitted to the hospital, given 2 doses of IV digoxin for a total of 0.75 mg. The patient was also given magnesium. The patient overnight converted spontaneously from atrial fibrillation to normal sinus rhythm. The patient in the hospital had no other significant abnormalities. No fevers, chills. The patient never had any chest pain. The patient never had any shortness of breath. The patient had no preceding symptoms of heart failure including orthopnea, nocturia or dyspnea on exertion and the patient continued to not have any. The patient had 4 elevated troponin levels, but that were essentially stable and began to trend down somewhat at discharge. The patient had a digoxin level drawn on 01/29/19, which was significantly elevated. A repeat was 3.9, which was also significantly elevated and then a repeat in the afternoon showed a level of 0.8. The patient had no abdominal pain or other symptoms of digoxin toxicity. The patient had a BNP, which was elevated. The patient was counseled given her atrial fibrillation, elevated troponin and her elevated BNP that she should stay for an echocardiogram as soon as possible on 01/30/19 when it will be first available; however, the patient stated that she needed to get home to her children and that she would follow up as soon as possible for an outpatient echocardiogram. The patient had maintained sinus rhythm over the course of the day, having gone into sinus tachycardia with activity twice during the day with a rate maximally in the 110s. The patient had no hypotension and her blood pressure was good. The patient was given approximately 4 L of fluid while in the hospital and had a large amount of urine output and no signs of fluid overload. The patient had negative urine culture. The patient was stable and amenable for discharge on 01/29/19 to complete her workup as an outpatient and continue her treatment for her lymphoma with radiation therapy on Thursday. PHYSICAL EXAM ON THE DAY OF DISCHARGE: General: The patient is a 33-year-old female who appears stated age, has alopecia and is sitting in the bed, in no acute distress. Vital Signs: Temperature 97.9, pulse rate 70, respiratory rate 20, oxygen 99% on room air, blood pressure 126/70. HEENT: Head normocephalic, atraumatic. Sclerae anicteric. No conjunctival injection. Nasal mucosa moist. Oral mucosa moist. No pharyngeal erythema, discharge, or exudate. Neck: Supple, nontender. No lymphadenopathy. No carotid bruits auscultated. No JVD. Cardiac: Regular rate and rhythm. No clicks, murmurs, gallops, or rubs. Pulses are 2+ in the bilateral dorsalis pedis, posterior tibialis, and radial areas. No bilateral lower extremity edema noted. No bilateral calf tenderness. Respiratory: Clear to auscultation bilaterally. No wheezing, rales, or rhonchi. Good air exchange bilaterally. Abdomen: Soft , nontender, nondistended. Bowel sounds present and normoactive in all 4 quadrants. No hepatosplenomegaly. No abdominal bruits auscultated. No hepatojugular reflux. Genitourinary: No suprapubic or CVA tenderness. Skin: Clean, dry, and intact. No rash. Neuro: Cranial nerves II through XII intact. No focal deficits. Alert and oriented x3. Psychiatric: Pleasant and cooperative. DISCHARGE PLAN BY PROBLEM: 1. Paroxysmal atrial fibrillation with rapid ventricular response. The patient is currently in normal sinus rhythm. The patient will be started on metoprolol tartrate 25 mg p.o. b.i.d. for rhythm control should she go back into atrial fibrillation as well as possible marginal rhythm control. The patient should follow up as soon as possible outpatient for an echocardiogram given her history of anthracycline chemotherapy as well as radiation therapy effect targeting her heart, though her oncologist believes that the radiation therapy is unlikely to have contributed to her presentation. The patient should avoid coffee as this appears to have been a precipitating factor and should avoid alcohol and stress as much as possible as well. There should be as little interruption as possible in the patient's radiation therapy regimen and she will resume these through her radiation oncologist on Thursday. This has been cleared through her outpatient oncologist, Dr. Toribio Carvalho. The patient had a normal CRP, which is reassuring against srinath or myopericarditis, either related to viral infection or radiation therapy. The patient again should have an echo as soon as possible outpatient. 2. Elevated troponin. The patient's elevated troponin is likely related to her AFib with RVR going up to rate in the 180s. The patient has no signs of ischemia on any of her EKGs. The patient never had any chest pain. The patient will have an echocardiogram to evaluate her valvular and pump function as soon as possible outpatient. This has been ordered through my attending, Dr. Chong Isbell. The patient will follow up about the results of these with her oncologist, Dr. Carvalho, who also acts as her primary care provider and cardiology consultation should be considered as indicated. 3. Large B-cell lymphoma. Continue outpatient management with radiation therapy per Oncology. 4. Joint pain. The patient complains of chronic joint pain. Per the patient' s request, the patient had a rheumatoid factor drawn while in the hospital as she feels she had been complaining about this for a long time and has not been listened to. The patient's rheumatoid factor was negative and she was reassured that this was a reassuring sign that she does not have rheumatoid arthritis. Anti-CCP is pending at this time. DISPOSITION: Home. CONDITION: Stable. TIME SPENT: Approximately 60 minutes was spent on the discharge of this patient , 30 of which was spent [id number] with the patient obtaining history and physical and discussing treatment plan. This plan has been discussed with my attending, Dr. Chong Isbell, and he is in agreement. JERAMIE ETIENNE [id number]/[facility] #: [id number] [place]
--- NOTE | 2019-01-29 22:22 | CONS ---
MEDICAL ONCOLOGY CONSULTATION NOTE: DATE OF CONSULT: 01/29/19 REASON FOR CONSULT: New-onset atrial fibrillation in patient with diffuse large B-cell lymphoma. HISTORY OF PRESENT ILLNESS: Margarette Capps is a patient who has been followed in our office since July 2018. She had presented to the hospital here 13 weeks' in June 2018 with shortness of breath and cough. She was evaluated for potential pulmonary embolism, but this was not found on a CT angiogram of the chest. She had a large area of abnormality in the right middle lobe 5.5 x 6.9 x 6.2 cm, initially felt to potentially be a pneumonia and treated with a course of antibiotics with azithromycin and cephalosporin. She was hospitalized and felt somewhat better by the time of discharge. By early July 2018, she developed increased chest pressure and occasional cough that was somewhat pleuritic in nature. Chest x-ray revealed an interval increase in size of the right middle lobe mass. She was seen in our office the following day on 08/02/18. Ultrasound-guided biopsy of the mediastinal mass revealed diffuse large B-cell lymphoma. She was started on R-CHOP chemotherapy on 08/17/18. She had her fourth cycle of R-CHOP on 10/19/18 and shortly thereafter developed HELLP syndrome and was transferred to [facility] in [place] where she was induced and delivered her baby girl approximately 4 weeks early. She subsequently had a cycle 5 on 11/09/18 and cycle 6 on 11/30/18. She had never had an initial staging PET scan due to being , but PET scan performed on 11/24/18 revealed solitary 1.8 cm x 1.4 cm anterior right perihilar mass. Marked improvement from the initial 6.8 x 5.6 cm mass, and at this time, the lesion had only blood pool activity with an SUV of 2.6 with a level 3 on the Deauville scale. She subsequently had cycle 6 of chemotherapy as described above and then was referred for radiation therapy. She was seen in consultation by Dr. Avila on 12/31/18 and following simulation was started on radiation therapy to the area of initial large chest mass on 01/24/19. She missed 1 day of radiation therapy this week on 01/25/19, but has received at this point a total of 4 doses of radiation therapy. In general, she reports that she has been having some ongoing cough productive of greenish sputum for a long time which sounds mostly postnasal. She had noticed on the day of admission, 01/28/19, increased chest discomfort along with shortness of breath and feeling palpitations in her chest. Following receiving radiation therapy on that day, she presented to the emergency room where she was found to be in atrial fibrillation with the ventricular rate in the 130s to 140s. She was treated with diltiazem along with digoxin and subsequently beta-blockers. She subsequently converted to normal sinus rhythm. PAST MEDICAL HISTORY: Unremarkable other than being a 3, para 3 female and the above history of diffuse large B-cell lymphoma. PAST SURGICAL HISTORY: Only surgeries are repair of a dog bite on her face and [id number] insertion. MEDICATIONS: At the time of admission include: 1. Turmeric. 2. Magnesium. 3. Ibuprofen p.r.n. ALLERGIES: None. FAMILY HISTORY: No family history of any malignancies or major heart disease. There is some heart disease in paternal grandfather in older age. SOCIAL HISTORY: No alcohol or tobacco. 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 She is not , has 3 children, the 2 youngest live with her including her 3-month old as discussed above. REVIEW OF SYSTEMS: Energy level has been poor and remains fatigued much of the time, but this is not new. Shortness of breath and chest discomfort and palpitations as described above. No significant changes in bowel or bladder habits. She does describe some significant discomfort in her lower extremities especially as well as as some discomfort in her hands as well. She has been worked up in the past for various rheumatologic conditions and then found to be negative, but this workup is again ongoing. Denies any significant neuropathy status post chemotherapy. Denies any other neurologic complaints. No recent fevers, sweats, chills, or other signs of infection. PHYSICAL EXAM: A 33-year-old female, in no acute distress. Afebrile, pulse 80 , blood pressure 118/80. HEENT: Benign. Neck: Supple. No palpable cervical , supraclavicular, or axillary adenopathy. Lungs: Clear bilaterally. Heart: Regular rate and rhythm without murmurs, rubs, or gallops. Abdomen: Soft and nontender without masses or organomegaly. Extremities: No edema. DIAGNOSTIC STUDIES/LAB DATA: White count 6000 with a hemoglobin of 12.1, platelet count 231,000. Electrolytes: Sodium 137, potassium 3.9, chloride 107 , bicarb 25, BUN 17, creatinine 0.72, magnesium 2.0. LFTs normal. Initial troponin was 0.13 and on repeat 0.12. EKG initially showed atrial fibrillation without significant ST-segment elevations or depressions. Subsequent EKG today reveals normal sinus rhythm. Chest x-ray is unremarkable. IMPRESSION: A 33-year-old female with diffuse large B-cell lymphoma, status post 6 cycles of R-CHOP chemotherapy, finished on 11/30/18. She has received to this point 4 treatments of radiation therapy, only 3 of which were delivered before the onset of atrial fibrillation. She is feeling much better, no longer having dizziness, lightheadedness, chest discomfort, and shortness of breath that she had when she was in rapid atrial fibrillation. She has been treated appropriately with medications to convert her out of atrial fibrillation and back to normal sinus rhythm. One of the medications was digoxin at the present time. She has an elevated digoxin level and this will need to be followed. She has a low CHADS score and has not been anticoagulated. Her TSH is normal. There does not appear to be evidence for hyperthyroidism causing the atrial fibrillation. She did take a significant amount of caffeine including, which she felt was a larger dose of caffeine than she usually does on the day of developing the atrial fibrillation and this certainly may be contributing. It is possible that she does have a decrease in her ejection fraction related to anthracyclines which could be contributing. I have asked that an echocardiogram be obtained to look into the possibility of a decreased ejection fraction. She had initial transesophageal echocardiogram on 08/16/18, the start of her chemotherapy, which revealed an ejection fraction of 55% to 60 % with normal diastolic and systolic function and no wall motion abnormalities. Question was raised as whether the radiation therapy could be causing the atrial fibrillation. The following study was reviewed. It was published in the circulation as an abstract in 2015 and comes from [facility] and the [facility]. A retrospective analysis was done of over 4000 patients who had primary tumors of the breast, lung, mediastinum, or esophagus from 1994 to 2013 and who did not have atrial fibrillation at the time of diagnosis. The patients were followed for the development of atrial fibrillation for an average of 2 years. Of those 4163 patients, 600 underwent radiation therapy. The instance of atrial fibrillation was 6.8% with and 6.2% without radiation therapy. After adjustment for potential confounding factors, which included age , male sex, coronary artery disease, hypertension, and heart failure, there was no difference in the development of atrial fibrillation with or without radiation therapy. 1. Assuming that she has an adequate ejection fraction, I would strongly urge her to continue the radiation therapy and try to keep this on schedule as much as possible. Radiation clearly works best when kept on schedule and she has already missed 1 day out of her first week and has been known to miss many appointments, although not chemotherapy treatments during the course of her lymphoma treatment since last July. 2. Diffuse large B-cell lymphoma. Radiation therapy is ongoing. She has no signs of any distant disease and has an excellent prognosis in terms of potential cure for her diffuse large B-cell lymphoma. She had a stage I disease with negative bone marrow aspirate and biopsy and normal imaging outside of the chest, although this was limited by the inability to obtain a PET scan at the time of her initial diagnosis due to her being . 3. Significant discomfort in the extremities, especially in the lower extremities. It is certainly possible that she has some underlying inflammatory arthritis. She reports that this pain was much improved when she was on R-CHOP chemotherapy, almost certainly from the prednisone that she was receiving at that time. [id number]/[facility] #: [id number] [facility]
== END 2019-01-29 18:25 | disposition home or self-care (01) ==
LOC: ED 14:32 → MEDTELE 18:35
PROVIDERS: ADMIT Internal Medicine; ATTEND Internal Medicine
DX: I48.20 Chronic atrial fibrillation, unspecified (principal); R79.89 Other specified abnormal findings of blood chemistry; Z79.899 Other long term (current) drug therapy; R42 Dizziness and giddiness; R00.2 Palpitations; R41.9 Unspecified symptoms and signs involving cognitive functions and awareness; C83.30 Diffuse large B-cell lymphoma, unspecified site; Z92.21 Personal history of antineoplastic chemotherapy
CPT/HCPCS: 36415; 71045; 80048; 80053; 80162; 81003; 81015; 82553; 83735; 83880; 84443; 84484; 84702; 85025; 85379; 85610; 86140; 86200; 86431; 87086; 93005; 96361; 96365; 96375; 96376; 99285; A9270-GY; G0378; J1160; J1642; J1650; J3475; J3490

== ENCOUNTER 2019-02-02 09:57 | Emergency (ER) | payer OTHER ==
--- NOTE | 2019-02-02 10:25 | ED ---
Complex/Multi-Sys Presentation - HPI Summary HPI Summary: Pt is a 33 y/o F presenting to the ED for SOB and generalized arthralgia to the back, neck, bilateral knees, hips, and bilateral wrists which has worsened for the last 2 weeks. Pt states she has chronic back pain for which her oncologist is aware of but does not think is related to her cancer (neg PET CTs). No bowel or bladder incontinence, weakness or numbness. For the last 2 days, pt has had SOB with simple ambulation. Pt reports she also has mild CP and ADLER. She states the ADLER could be related to recent coffee cessation. Pt denies fever. Pt was previously [place] [facility] [place] on [place]19 and given blood thinners during her visit.. Pt denies taking blood thinners at the present time. Pt was prescribed Metoprolol for atrial fibrillation which she has taken as directed. During the last visit at [facility], pt had a chest x-ray performed, but not a chest CT. Pt is currently on radiation therapy for b cell lymphoma. Pt stopped chemotherapy treatments 2 months ago. Pt denies any other PMHx. Pt is unsure if she has a FMHx of blood clots. Pt denies taking oral contraceptives or tobacco use. - History Of Current Complaint Chief Complaint: EDGeneral Time Seen by Provider: 02/02/19 10:06 Hx Obtained From: Patient Onset/Duration: Lasting Weeks, Still Present Timing: Weeks Severity Currently: Moderate Severity Initially: Moderate Location: Pain At: - Arthalgia to the bacl, neck, bilateral knees, hips, and bilateral wrists. Associated Signs And Symptoms: Positive: Headache, SOB - With simple ambulation , Chest Pain, Back Pain. Negative: Fever - Allergies/Home Medications Allergies/Adverse Reactions: Allergies Allergy/AdvReac Type Severity Reaction Status Date / Time No Known Allergies Allergy Verified 02/02/19 10:03 PMH/Surg Hx/FS Hx/Imm Hx Previously Healthy: Yes Endocrine/Hematology History: Reports: Hx Anemia Denies: Hx Diabetes, Hx Thyroid Disease Cardiovascular History: Denies: Hx Hypertension, Hx Pacemaker/ICD Respiratory History: Reports: Hx Pneumonia - June 2018 Denies: Hx Asthma, Hx Chronic Obstructive Pulmonary Disease (COPD) History: Denies: Hx Dialysis, Hx Renal Disease Musculoskeletal History: Reports: Hx Arthritis, Hx Back Problems Sensory History: Denies: Hx Contacts or Glasses, Hx Legally Blind, Hx Deafness, Hx Hearing Aid Opthamlomology History: Denies: Hx Contacts or Glasses, Hx Legally Blind Neurological History: Denies: Hx Dementia Psychiatric History: Reports: Hx Anxiety - Says it has dimished as she's gotten older. 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 BIOPSIES Hx Anesthesia Reactions: No Infectious Disease History: No Infectious Disease History: Denies: Hx Hepatitis, Traveled Outside the [place] in Last 30 Days - Family History Known Family History: Positive: Other - No family history of migraine or related problems. Negative: Cardiac Disease, Hypertension, Diabetes - Social History Alcohol Use: None Hx Substance Use: No Substance Use Type: Reports: None Hx Tobacco Use: No Smoking Status (MU): Never Smoked Tobacco Have You Smoked in the Last Year: No Review of Systems Negative: Fever Positive: Chest Pain Positive: Shortness Of Breath Positive: Arthralgia - Neck, bilateral knees, hips, bilateral wrists, Myalgia - Back Positive: Headache All Other Systems Reviewed And Are Negative: Yes Physical Exam - Summary Physical Exam Summary: Constitutional: Well-developed, Well-nourished, Alert. (-) Distressed Skin: Warm, Dry HENT: Normocephalic; Atraumatic Eyes: Conjunctiva normal Neck: Musculoskeletal ROM normal neck. (-) JVD, (-) Stridor, (-) Nuchal rigidity Cardio: Rhythm regular, rate normal, Heart sounds normal; Intact distal pulses; Radial pulses are 2+ and symmetric. (-) Murmur Pulmonary/Chest wall: Effort normal. (-) Respiratory distress, (-) Wheezes, (-) Rales. Left chest port that is clean and dry. Abd: Soft, (-) tenderness, (-) Distension, (-) Guarding, (-) Rebound Musculoskeletal: (-) Edema. Diffuse arthralgia to back, wrist, hip, and knees. Lymph: (-) Cervical adenopathy Neuro: Alert, Oriented x3 Psych: Mood and affect Normal Triage Information Reviewed: Yes Vital Signs On Initial Exam: Initial Vitals Temp Pulse Resp BP Pulse Ox 97.3 F 97 16 111/81 100 02/02/19 09:59 02/02/19 09:59 02/02/19 09:59 02/02/19 09:59 02/02/19 09:59 Vital Signs Reviewed: Yes Procedures - Sedation Patient Received Moderate/Deep Sedation with Procedure: No Diagnostics - Vital Signs Vital Signs Temp Pulse Resp BP Pulse Ox 02/02/19 09:59 97.3 F 97 16 111/81 100 - Laboratory Result Diagrams: 02/02/19 10:27 02/02/19 10:27 Lab Statement: Any lab studies that have been ordered have been reviewed, and results considered in the medical decision making process. - CT Chest/Thorax CT CT Interpretation Completed By: Radiologist Summary of CT Findings: Chest/Thorax CT IMPRESSION: 1. No pulmonary embolism. 2. The mass abutting the right heart border is slightly decreased in size as above. 3. No focal airspace opacification. Reviewed by ED physician. - EKG 10:30 Cardiac Rate: NL - 75 BPM EKG Rhythm: Sinus Rhythm ST Segment: Normal Ectopy: None Summary of EKG Findings: EKG at 10:30 reveals normal sinus rhythm at 75 BPM, T wave inversions in lead I and lead II, no STEMI. Reviewed and interpreted by ED physician. Re-Evaluation - Re-Evaluation 1st re-eval Re-Evaluation Time: 13:56 Comment: At 13:56, I discussed the negative CTA findings with the pt. Trop downtrending. EKG unchanged. Pt will be discharged home with a diagnosis of dyspnea and arthralgia. Complex Multi-Symp Course/Dx Course Of Treatment: 33-year-old female with a history of large B-cell lymphoma , status post chemotherapy on radiation, diagnosis of A. fib, who presents with SOB. Ddx includes PE, ACS, PNA. Check CTA, labs. Regarding chronic arthralgias, patient has had negative PET scan for danna pathology. Given no new symptoms, will not pursue further w/u at this time. Patient would like rheum referral. - Diagnoses Provider Diagnoses: Arthralgia, Dyspnea Discharge ED - Sign-Out/Discharge Documenting (check all that apply): Patient Departure - Discharge - Discharge Plan Condition: Stable Disposition: HOME Patient Education Materials: Dyspnea (ED), Arthralgia (ED) Referrals: Toribio Carvalho MD [Primary Care Provider] - Chapo Aviles MD [Medical Doctor] - Additional Instructions: You were seen in the emergency department for breath and joint pain. Your CT scan did not show any evidence of blood clots. Lab work was unremarkable aside from a slightly elevated heart number (which is lower than before) If any studies were not completed at the time of discharge you will be called with the relevant results. Please follow up with your primary care doctor in next 2-3 days and return to emergency department for worsening or concerning symptoms. It was a pleasure taking care of you today. - Billing Disposition and Condition Condition: STABLE Disposition: Home - Attestation Statements Document Initiated by Issac: Yes Documenting Scribe: Tracy Brady Provider For Whom Issac is Documenting (Include Credential): Tc Ibarra MD Scribe Attestation: ITracy, scribed for Tc Ibarra MD on 02/02/19 at 1405. Scribe Documentation Reviewed: Yes Provider Attestation: The documentation as recorded by the Tracy franco accurately reflects the service I personally performed and the decisions made by , Tc Ibarra MD Status of Scribe Document: Viewed
[2019-02-02 10:35] LABS: ABS Eosinophils 0.3 10^3/ul (0-0.6); ABS Lymphocytes 0.5 10^3/ul (1.0-4.8); ABS Monocytes 0.3 10^3/ul (0-0.8); ABS Neutrophils 5.5 10^3/ul (1.5-7.7); Hematocrit 40 % (35-47); Hemoglobin 13.3 g/dL (12.0-16.0); Lymphocyte % 7.1 %; Mean Corpuscular HGB Conc 34 g/dL (31-36); Mean Corpuscular Hemoglobin 27 pg (27-31); Mean Corpuscular Volume 82 fL (80-97); Mean Platelet Volume 7.8 fL (7.4-10.4); Nucleated Red Blood Cells % 0.1; Platelet Count 222 10^3/uL (150-450); Red Blood Count 4.84 10^6 /uL (3.70-4.87); Red Cell Distribution Width 15 % (10-15); White Blood Count 6.6 10^3/uL (3.5-10.8)
[2019-02-02 10:41] LABS: INR 1.02 (0.82-1.09)
[2019-02-02 10:54] LABS: ALT 25 U/L (7-52); AST 25 U/L (13-39); Albumin 4.2 g/dL (3.2-5.2); Albumin/Globulin Ratio 1.6 (1-3); Alkaline Phosphatase 104 U/L (34-104); Anion Gap 4 mmol/L (2-11); BUN/Creatinine Ratio 27.5 (8-20); Blood Urea Nitrogen 22 mg/dL (6-24); CO2 Carbon Dioxide 28 mmol/L (22-32); Calcium 9.5 mg/dL (8.6-10.3); Chloride 104 mmol/L (101-111); EGFR Non-African American 82.6 (>60); Globulin 2.7 g/dL (2-4); Glucose 90 mg/dL (70-100); Potassium 3.9 mmol/L (3.5-5.0); Sodium 136 mmol/L (135-145); Total Protein 6.9 g/dL (6.4-8.9)
[2019-02-02 11:00] LABS: HCG Pregnancy 1.38 mIU/mL
[2019-02-02 11:05] LABS: Troponin I 0.07 ng/mL (<0.04)
[2019-02-02] MEDS: Acetaminophen TAB* 325 MG PO ONE (11:34)
[2019-02-02] MEDS: NS 0.9% 1000 ML** 1,000 ML IV ONE (11:50)
[2019-02-02] MEDS: Iohexol 350* (CONTRAST) 500 ML MDV IV ONE (12:57)
[2019-02-02 14:21] VITALS: BP 130/94
== END 2019-02-02 14:14 | disposition home or self-care (01) ==
LOC: ED 09:57
DX: M25.50 Pain in unspecified joint (principal); R06.00 Dyspnea, unspecified; I48.91 Unspecified atrial fibrillation; D64.9 Anemia, unspecified; F41.9 Anxiety disorder, unspecified; Z85.72 Personal history of non-Hodgkin lymphomas; Z79.899 Other long term (current) drug therapy
CPT/HCPCS: 36415; 71275; 80053; 83880; 84484; 84702; 85025; 85610; 93005; 96360; 96361; 99283; A9270-GY; Q9967

== ENCOUNTER 2019-03-21 19:56 | Emergency (ER) | payer MEDICAID ==
--- OUTSIDE RECORDS SUMMARY | 2019-03-21 20:33 | XMS REPORT | Continuity of Care Document ---
:1985 External Reference #:[id number] Author Name Zoe Silva Care Team Providers Name Role Phone Chong Isbell MD - Hospitalist Care Team Information Environmental Protection Inspector [phone] Toribio Carvalho M.D. - Hematology & Care Team Information Environmental Protection Inspector [phone] Oncology Crys Montalvo MD - Family Medicine Care Team Information Environmental Protection Inspector [phone] Problems Active Problems Provider Date Obesity Bárbara Oglesby M.D. Onset: 07/22/2012 Neck pain Bárbara Oglesby M.D. Onset: 07/22/2012 Low back pain Bárbara Oglesby M.D. Onset: 07/22/2012 Female infertility Bárbara Oglesby M.D. Onset: 07/22/2012 Malaise and fatigue Bárbara Oglesby M.D. Onset: 07/22/2012 Social History Type Date Description Comments Sex Unknown Tobacco Use Start: Unknown Never Smoked Cigarettes Smoking Status Reviewed: 03/01/19 Never Smoked Cigarettes ETOH Use Never used alcohol ETOH Use Denies alcohol use Tobacco Use Start: Unknown Patient has never smoked Exercise Type/Frequency Exercises sporadically Allergies, Adverse Reactions, Alerts Description No Known Drug Allergies Medications Active Medications SIG Qnty Indications Ordering Provider Date Duloxetine HCL take one cap by sj M79.10 Bao Bennett, 03/01/2019 30mg mouth daily for MD José Miguel Freeman two weeks then increase to twice daily Tumeric Unknown Mag-200 1 by mouth every Unknown 200mg Tablets day Metoprolol Tartrate 1 by mouth twice Unknown a day (takes 1 25mg Tablets time a day) Immunizations Description No Information Available Vital Signs Date Vital Result Comment 03/01/2019 10:02am Height 66.75 inches 5'6.75" Weight 186.00 lb Heart Rate 94 /min BP Systolic 91 mmHg BP Diastolic 66 mmHg Body Temperature 96.9 F Pain Level 7 O2 % BldC Oximetry 98 % BMI (Body Mass Index) 29.3 kg/m2 07/06/2012 1:09pm Height 66.75 inches 5'6.75" Weight 197.00 lb BP Systolic Sitting 110 mmHg BP Diastolic Sitting 76 mmHg BMI (Body Mass Index) 31.1 kg/m2 Results Description No Information Available Procedures Date Code Description Status 02/01/2019 38159 ECHO Transthoracic, Real-Time 2D With Doppler And Color Completed Flow 02/01/2019 91512 ECHO Transthoracic, Real-Time 2D With Doppler And Color Completed Flow Medical Devices Description No Information Available Encounters Type Date Location Provider Dx Diagnosis Office Visit 01/29/2019 [facility] Fabian Soto I48.91 Unspecified atrial 11:39a rosibel Auguste fibrillation Hospitalists R79.89 Other specified abnormal findings of blood chemistry Office Visit 01/28/2019 [facility] Fabian I48.91 Unspecified atrial 11:38a rosibel Auguste [place] fibrillation Hospitalists Assessments Date Code Description Provider 03/01/2019 M79.7 Fibromyalgia Bao Bennett MD 03/01/2019 M25.552 Hip pain Bao Bennett MD 03/01/2019 M54.5 Low back pain Bao Bennett MD 03/01/2019 C83.30 Diffuse large B-cell lymphoma, Bao Bennett MD unspecified site 03/01/2019 M54.2 Neck pain Bao Bennett MD 03/01/2019 M79.10 Muscle pain Bao Bennett MD 03/01/2019 M25.512 Shoulder joint pain Bao Bennett MD 03/01/2019 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 Bao Bennett MD 02/01/2019 I48.0 Paroxysmal atrial fibrillation Usama Torres M.D. 02/01/2019 I48.0 Paroxysmal atrial fibrillation Ica ECHO Schedule 02/01/2019 Z51.0 Encounter for antineoplastic [facility] ECHO Schedule radiation therapy 02/01/2019 T45.1x5A Adverse effect of antineoplastic and Usama Torres M.D. immunosuppressive drugs, initial encounter 02/01/2019 T45.1x5A Adverse effect of antineoplastic and Ica ECHO Schedule immunosuppressive drugs, initial encounter 01/29/2019 I48.91 Unspecified atrial fibrillation JERAMIE Serna 01/29/2019 R79.89 Other specified abnormal findings of JERAMIE Serna blood chemistry 01/28/2019 I48.91 Unspecified atrial fibrillation JERAMIE Serna Plan of Treatment Future Appointment(s):04/05/2019 10:00 am - Bao Bennett MD [facility]03/01/2019 - Bao Bennett, MDM79.7 FibromyalgiaFollow up:4-6 cuzlfD57.552 Hip painNew Xrays:SP Lumbarsacral 4+ VWS, Ordered: Hips-Bilateral 5+ VWS, Ordered: 03/01/19Knees Bilateral Standing Ap, Ordered: 03/01/19M54.5 Low back painNew Xrays:Spine Thoracic 3 Views, Ordered: C83.30 Diffuse large B-cell lymphoma, unspecified siteM54.2 Neck painM79.10 Muscle painNew Medication:Duloxetine HCL 30 mg - take one cap by mouth daily for two weeks then increase to twice wpuloA82.512 Shoulder joint painNew Therapy :Physical HnifuzgQ80.7 Hypermobility syndrome Functional Status Description No Information Available Mental Status Description No Information Available Referrals Description No Information Available
[2019-03-21 21:19] VITALS: BP 132/79
== END 2019-03-21 22:10 | disposition left against medical advice (07) ==
LOC: ED 19:56
DX: G96.9 Disorder of central nervous system, unspecified (principal); Z53.21 Procedure and treatment not carried out due to patient leaving prior to being seen by health care provider
CPT/HCPCS: 99282

== ENCOUNTER 2019-05-11 18:02 | Emergency (ER) | payer MEDICAID ==
--- OUTSIDE RECORDS SUMMARY | 2019-05-11 18:27 | XMS REPORT | Continuity of Care Document ---
:1985 External Reference #:[id number] Author Name Clark Lion, FACC (transmitted by agent of provider Evangelina Duarte) Address [address] [place] [address] Care Team Providers Name Role Phone Chong Isbell MD - Hospitalist Care Team Information Plant Maintenance Mechanic [phone] Toribio Carvalho M.D. - Hematology & Care Team Information Plant Maintenance Mechanic Oncology Crys Montalvo MD - Family Medicine Care Team Information Plant Maintenance Mechanic [phone] Problems Active Problems Provider Date Obesity Bárbara Oglesby M.D. Onset: 07/22/2012 Neck pain Bárbara Oglesby M.D. Onset: 07/22/2012 Low back pain Bárbara Oglesby M.D. Onset: 07/22/2012 Female infertility Bárbara Oglesby M.D. Onset: 07/22/2012 Malaise and fatigue Bárbara Oglesby M.D. Onset: 07/22/2012 Social History Type Date Description Comments Sex Unknown Tobacco Use Start: Unknown Never Smoked Cigarettes Smoking Status Reviewed: 05/10/19 Never Smoked Cigarettes ETOH Use Never used alcohol ETOH Use Denies alcohol use Tobacco Use Start: Unknown Patient has never smoked Exercise Type/Frequency Exercises sporadically Allergies, Adverse Reactions, Alerts Description No Known Drug Allergies Medications Active Medications SIG Qnty Indications Ordering Provider Date Metoprolol Succinate 1 by mouth every 30tabs Clark Lion, 05/10/2019 ER day DO FACC 25mg Tablets ER 24HR Tumeric Unknown Mag-200 1 by mouth every Unknown 200mg Tablets day CBD Oil cbd oil 1 or 2 Unknown drops topically daily for pain History Medications Duloxetine HCL take one cap by 60caps M79.10 Bao Bennett, 03/01/2019 - 30mg mouth daily for 05/09/[address] Freeman two weeks then increase to twice daily Immunizations Description No Information Available Vital Signs Date Vital Result Comment 05/10/2019 10:18am Height 66.75 inches 5'6.75" Weight 186.00 lb Heart Rate 63 /min BP Systolic Sitting 110 mmHg lue reg cuff BP Diastolic Sitting 74 mmHg lue reg cuff BP Systolic Standing 112 mmHg lue reg cuff BP Diastolic Standing 74 mmHg lue reg cuff Respiratory Rate 14 /min BMI (Body Mass Index) 29.3 kg/m2 Ejection Fraction 45-50% echo. 02/01/19 03/01/2019 10:02am Height 66.75 inches 5'6.75" Weight 186.00 lb Heart Rate 94 /min BP Systolic 91 mmHg BP Diastolic 66 mmHg Body Temperature 96.9 F Pain Level 7 O2 % BldC Oximetry 98 % BMI (Body Mass Index) 29.3 kg/m2 Results Test Acquired Date Facility Test Result H/L Range Note Laboratory test 05/10/2019 [facility] B-Type <pending> finding [address] [address] Peptide BNP [phone] Troponin-I (TnI) <pending> Procedures Date Code Description Status 05/10/2019 03103 EKG Tracing & Interpretation Completed 02/01/2019 40745 ECHO Transthoracic, Real-Time 2D With Doppler And Color Completed Flow 02/01/2019 73302 ECHO Transthoracic, Real-Time 2D With Doppler And Color Completed Flow 01/29/2019 09854 EKG, Interpretation Only Completed Medical Devices Description No Information Available Encounters Type Date Location Provider Dx Diagnosis Office Visit 03/01/2019 [facility] Bao Bennett M79.7 Fibromyalgia 11:25a Of Game Author - Ccmob M25.552 Pain in left hip M54.5 Low back pain C83.30 Diffuse large B-cell lymphoma, unspecified site M54.2 Cervicalgia M25.512 Pain in left shoulder 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 M25.551 Pain in right hip Office Visit 01/29/2019 [facility] I48.91 Unspecified atrial 11:39a Assoc,JERAMIE [place] fibrillation Hospitalists R79.89 Other specified abnormal findings of blood chemistry Office Visit 01/28/2019 [facility] I48.91 Unspecified atrial 11:38a rosibel Auguste [place] fibrillation Hospitalists Assessments Date Code Description Provider 05/10/2019 I47.1 Supraventricular tachycardia Clark Lion, DO FACC 05/10/2019 C83.30 Diffuse large B-cell lymphoma, Clark Lion, DO FAC unspecified site 05/10/2019 I42.9 Cardiomyopathy, unspecified Clark Lion, DO FACC 05/10/2019 R06.02 Shortness of breath Clark Lion, DO FACC 05/10/2019 R07.9 Chest pain, unspecified Clark Lion, DO FACC 03/01/2019 M79.7 Fibromyalgia Bao Bennett MD 03/01/2019 M25.552 Pain in left hip Bao Bennett MD 03/01/2019 M54.5 Low back pain Bao Bennett MD 03/01/2019 C83.30 Diffuse large B-cell lymphoma, Bao Bennett MD unspecified site 03/01/2019 M54.2 Cervicalgia Bao Bennett MD 03/01/2019 M25.512 Pain in left shoulder Bao Bennett MD 03/01/2019 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 Bao Bennett MD 03/01/2019 M25.551 Pain in right hip Bao Bennett MD 03/01/2019 M79.7 Fibromyalgia Bao Bennett MD 03/01/2019 M25.552 Hip pain Bao Bennett MD 03/01/2019 M54.5 Low back pain Bao Bennett MD 03/01/2019 C83.30 Diffuse large B-cell lymphoma, Bao Bennett MD unspecified site 03/01/2019 M54.2 Neck pain Bao Bennett MD 03/01/2019 M25.512 Shoulder joint pain Bao Bennett MD 03/01/2019 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 Bao Bennett MD 03/01/2019 M25.551 Pain in right hip Bao Bennett MD 02/01/2019 I48.0 Paroxysmal atrial fibrillation Usama Torres M.D. 02/01/2019 I48.0 Paroxysmal atrial fibrillation Ica ECHO Schedule 02/01/2019 Z51.0 Encounter for antineoplastic Ica ECHO Schedule radiation therapy 02/01/2019 T45.1x5A Adverse effect of antineoplastic and Usama Torres M.D. immunosuppressive drugs, initial encounter 02/01/2019 T45.1x5A Adverse effect of antineoplastic and Ica ECHO Schedule immunosuppressive drugs, initial encounter 01/29/2019 Z13.6 Encounter for screening for Maksim Javier Kimble M.D., cardiovascular disorders [facility] [place] 01/29/2019 I48.91 Unspecified atrial fibrillation JERAMIE Serna 01/29/2019 R79.89 Other specified abnormal findings of JERAMIE Serna blood chemistry 01/28/2019 I48.91 Unspecified atrial fibrillation JERAMIE Serna Plan of Treatment Future Appointment(s):05/26/2019 9:00 am - Nurse Visit IC at [facility]05/25/2019 9:30 am - Nurse Visit IC at [facility] 9:00 am - Traveling ECHO 1 at [facility]05/13/2019 3:30 pm - Bao Bennett MD at [facility]05/10/2019 - Clark Lion, DO FACCI47.1 Supraventricular tachycardiaNew Orders:Holter Monitor, Ordered: 05/10/19Comments:You are currently taking short acting metoprolol only once a day.I want you to take long acting metoprolol succinate once daily instead. Have blood work todayFollow up:Wait until echo and holter are finished to schedule f/u hbpmlS24.30 Diffuse large B-cell lymphoma, unspecified siteI42.9 Cardiomyopathy, unspecifiedNew Orders:Echocardiogram, Ordered: R06.02 Shortness of fygyeqD06.9 Chest pain, unspecified Functional Status Description No Information Available Mental Status Description No Information Available Referrals Description No Information Available
[2019-05-11] MEDS ORDERED: NS 0.9% 1000 ML** 1,000 ML IV ONE (19:46)
[2019-05-11] MEDS ORDERED: Ketorolac INJ* 30 MG/ML 1 ML VIAL IV PUSH ONE (19:46)
[2019-05-11] MEDS ORDERED: Cyclobenzaprine TAB* 10 MG PO ONE (19:46)
--- NOTE | 2019-05-11 20:41 | ED ---
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 She is also experiencing back pain, lightheadedness and nausea. She has had no dysuria or vaginal discharge. She also states her liver enzymes are high. She has had sharp right side abdominal pain since months ago, and claims that it resolved but came back again 2 weeks ago and became worse after eating last night. She has Hx of Afib from January, cancer for which her last radiation therapy was 02/22/19, sludge in gallbladder , and fibromyalgia. She also has a port. She has no Hx of ulcers or kidney stones. She saw Dr. Carvalho for her cancer. - History of Current Complaint Chief Complaint: EDGeneral Stated Complaint: RAPID HEART RATE/DIZZY PER PT Time Seen by Provider: 05/11/19 19:35 Hx Obtained From: Patient Hx Last Menstrual Period: FEB 2018 Onset/Duration: Lasting Weeks, Still Present Timing: Hours Severity Currently: Moderate Pain Intensity: 6 Pain Scale Used: 0-10 Numeric Radiates to: Back Character: Sharp Associated Signs and Symptoms: Positive: Dizzy, Back Pain, Nausea, Other: - positive lightheadedness, negative vaginal discharge. Negative: Urinary Symptoms, Vaginal Discharge Allergies/Adverse Reactions: Allergies Allergy/AdvReac Type Severity Reaction Status Date / Time No Known Allergies Allergy Verified 03/21/19 20:10 PMH/Surg Hx/FS Hx/Imm Hx Endocrine/Hematology History: Reports: Hx Anemia Denies: Hx Diabetes, Hx Thyroid Disease Cardiovascular History: Denies: Hx Hypertension, Hx Pacemaker/ICD Respiratory History: Reports: Hx Pneumonia - June 2018 Denies: Hx Asthma, Hx Chronic Obstructive Pulmonary Disease (COPD) History: Denies: Hx Dialysis, Hx Renal Disease Musculoskeletal History: Reports: Hx Arthritis, Hx Back Problems Sensory History: Denies: Hx Contacts or Glasses, Hx Legally Blind, Hx Deafness, Hx Hearing Aid Opthamlomology History: Denies: Hx Contacts or Glasses, Hx Legally Blind Neurological History: Denies: Hx Dementia Psychiatric History: Reports: Hx Anxiety - Says it has dimished as she's gotten older. 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 BIOPSIES Hx Anesthesia Reactions: No Infectious Disease History: No Infectious Disease History: Denies: Hx Hepatitis, Traveled Outside the [place] in Last 30 Days - Family History Known Family History: Positive: Other - No family history of migraine or related problems. Negative: Cardiac Disease, Hypertension, Diabetes - Social History Alcohol Use: None Hx Substance Use: No Substance Use Type: Reports: Other Substance Use Comment - Amount & Last Used: Uses CBD oil Hx Tobacco Use: No Smoking Status (MU): Never Smoked Tobacco Have You Smoked in the Last Year: No Review of Systems Positive: Abdominal Pain, Nausea Negative: dysuria, discharge Positive: Myalgia - back Neurological: Other - dizziness, lightheadedness All Other Systems Reviewed And Are Negative: Yes Physical Exam - Summary Physical Exam Summary: Constitutional: Well-developed, Well-nourished, Alert. (-) Distressed Skin: Warm, Dry HENT: Normocephalic; Atraumatic Eyes: Conjunctiva normal Neck: Musculoskeletal ROM normal neck. (-) JVD, (-) Stridor, (-) Tracheal deviation Cardio: Rhythm regular, rate normal, Heart sounds normal; Intact distal pulses; The pedal pulses are 2+ and symmetric. Radial pulses are 2+ and symmetric. (-) Murmur Pulmonary/Chest wall: Effort normal. (-) Respiratory distress, (-) Wheezes, (-) Rales Abd: Soft, (+) RUQ tenderness, (-) Distension, (-) Guarding, (-) Rebound, normal bowel sounds Musculoskeletal: (-) Edema, Bilat mid low back tenderness along paraspinal muscles Lymph: (-) Cervical adenopathy Neuro: Alert, Oriented x3 Psych: Mood and affect Normal Triage Information Reviewed: Yes Vital Signs On Initial Exam: Initial Vitals Temp Pulse Resp BP Pulse Ox 97.9 F 96 14 107/75 98 05/11/19 18:07 05/11/19 18:07 05/11/19 18:07 05/11/19 18:07 05/11/19 18:07 Vital Signs Reviewed: Yes Procedures - Sedation Patient Received Moderate/Deep Sedation with Procedure: No Diagnostics - Vital Signs Vital Signs Temp Pulse Resp BP Pulse Ox 05/11/19 18:07 97.9 F 96 14 107/75 98 - Laboratory Result Diagrams: 05/11/19 20:41 05/11/19 20:41 Lab Statement: Any lab studies that have been ordered have been reviewed, and results considered in the medical decision making process. 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 She is also experiencing back pain, lightheadedness and nausea. She has had no dysuria or vaginal discharge. She also states her liver enzymes are high. She has had sharp right side abdominal pain since months ago, and claims that it resolved but came back again 2 weeks ago and became worse after eating last night. Exam found RUQ tenderness and Bilat mid low back tenderness along paraspinal muscles. Bloodwork showed Hgb L, Hct L, MPV L, abs lymphs L, BUN/creatinine ratio, Ca L, AST H, ALT H, Alk Hm total protein L. Pt signed out to Dr. Robertson at 2200 termination of shift pending US read. - Diagnoses Provider Diagnoses: Elevated LFTs, Biliary colic Discharge ED - Sign-Out/Discharge Documenting (check all that apply): Sign-Out Patient Signing out patient TO: Leodan Robertson - Pt signed out to Dr. Robertson at 2200 termination of shift pending US read. Receiving patient FROM: Phillip Perkins - Discharge Plan Referrals: Toribio Carvalho MD [Primary Care Provider] - - Attestation Statements Document Initiated by Issac: Yes Documenting Scribe: Mendel Fitzpatrick Provider For Whom Issac is Documenting (Include Credential): Blayne Perkins DO Scribe Attestation: Mendel Del Angel scribed for Blayne Perkins DO on 05/11/19 at 2240. Status of Scribe Document: Ready
[2019-05-11 20:48] LABS: ABS Eosinophils 0.3 10^3/ul (0-0.6); ABS Lymphocytes 0.5 10^3/ul (1.0-4.8); ABS Monocytes 0.4 10^3/ul (0-0.8); ABS Neutrophils 3.9 10^3/ul (1.5-7.7); Eosinophil % 5.2 %; Hematocrit 33 % (35-47); Hemoglobin 11.1 g/dL (12.0-16.0); Mean Corpuscular HGB Conc 34 g/dL (31-36); Mean Corpuscular Hemoglobin 28 pg (27-31); Mean Corpuscular Volume 82 fL (80-97); Mean Platelet Volume 6.9 fL (7.4-10.4); Platelet Count 178 10^3/uL (150-450); Red Blood Count 4.01 10^6 /uL (3.70-4.87); Red Cell Distribution Width 14 % (10-15); White Blood Count 5.2 10^3/uL (3.5-10.8)
[2019-05-11 21:04] LABS: Albumin 3.4 g/dL (3.2-5.2); Albumin/Globulin Ratio 1.7 (1-3); BUN/Creatinine Ratio 20.9 (8-20); EGFR African American 91.4 (>60); EGFR Non-African American 75.5 (>60); Potassium 3.6 mmol/L (3.5-5.0); Total Bilirubin 0.5 mg/dL (0.2-1.0); Total Protein 5.4 g/dL (6.4-8.9)
[2019-05-11 23:57] VITALS: BP 110/75
== END 2019-05-12 | disposition home or self-care (01) ==
LOC: ED 18:02
DX: R79.89 Other specified abnormal findings of blood chemistry (principal); K80.50 Calculus of bile duct without cholangitis or cholecystitis without obstruction; R42 Dizziness and giddiness; R11.0 Nausea; C85.90 Non-Hodgkin lymphoma, unspecified, unspecified site
CPT/HCPCS: 36415; 76705; 80053; 83690; 85025; 93005; 96361; 96374; 99283; A9270-GY; J1885

== ENCOUNTER 2019-06-16 15:00 | Emergency (ER) | payer SELFPAY ==
--- OUTSIDE RECORDS SUMMARY | 2019-06-16 15:06 | XMS REPORT | Continuity of Care Document ---
:1985 External Reference #:[id number] Author Name Rosalee Lion DO FACC (transmitted by agent of provider Esther Mcelroy) Address [address] [place] [id number] Care Team Providers Name Role Phone Chong Isbell MD - Hospitalist Care Team Information Netbackup Administrator [phone] Toribio Carvalho M.D. - Hematology & Care Team Information Netbackup Administrator [phone] Oncology Problems Active Problems Provider Date Obesity Bárbara Oglesby M.D. Onset: 07/22/2012 Neck pain Bárbara Oglesby M.D. Onset: 07/22/2012 Low back pain Bárbara Oglesby M.D. Onset: 07/22/2012 Female infertility Bárbara Oglesby M.D. Onset: 07/22/2012 Malaise and fatigue Bárbara Oglesby M.D. Onset: 07/22/2012 Social History Type Date Description Comments Sex Unknown Tobacco Use Start: Unknown Never Smoked Cigarettes Smoking Status Reviewed: 05/20/19 Never Smoked Cigarettes ETOH Use Never used alcohol ETOH Use Denies alcohol use Tobacco Use Start: Unknown Patient has never smoked Exercise Type/Frequency Exercises sporadically Allergies, Adverse Reactions, Alerts Description No Known Drug Allergies Medications Active Medications SIG Qnty Indications Ordering Date Provider Duloxetine HCL take one cap by 60caps M79.7 Bao Bennett, 05/20/[address] mouth daily for MD Part two weeks then increase to twice daily Cyclobenzaprine HCL take 5mg at night 90tabs M62.838 Bao Bennett, 05/20 5mg before bedtime Tablets Metoprolol Succinate ER 1 by mouth every 30tabs Rosalee Ross 05/10/2019 day DO Ayad FACC 25mg Tablets ER 24HR Tumeric Unknown Mag-200 1 by mouth every Unknown 200mg Tablets day CBD Oil cbd oil 1 or 2 Unknown drops topically daily for pain History Medications Duloxetine HCL take one cap by sj M79.10 Bao Bennett, 03/01/2019 - 30mg mouth daily for 05/09/[address] Freeman two weeks then increase to twice daily Immunizations Description No Information Available Vital Signs Date Vital Result Comment 05/18/2019 1:01pm Height 66.75 inches 5'6.75" Weight 196.00 lb Heart Rate 77 /min BP Systolic 99 mmHg BP Diastolic 69 mmHg Body Temperature 97.8 F Pain Level 6 O2 % BldC Oximetry 98 % BMI (Body Mass Index) 30.9 kg/m2 05/10/2019 10:18am Height 66.75 inches 5'6.75" Weight 186.00 lb Heart Rate 63 /min BP Systolic Sitting 110 mmHg lue reg cuff BP Diastolic Sitting 74 mmHg lue reg cuff BP Systolic Standing 112 mmHg lue reg cuff BP Diastolic Standing 74 mmHg lue reg cuff Respiratory Rate 14 /min BMI (Body Mass Index) 29.3 kg/m2 Ejection Fraction 45-50% echo. 02/01/19 Results Test Acquired Date Facility Test Result H/L Range Note Liver Function 06/06/2019 [facility] Total Protein 7.0 g/dL Normal 6.4-8.[address] [place] [address] [phone] Albumin 4.4 g/dL Normal 3.2-5.2 Globulin 2.6 g/dL Normal 2-4 Albumin/Globulin Ratio 1.7 Normal 1-3 Total Bilirubin 0.70 mg/dL Normal 0.2-1.0 Direct Bilirubin 0.10 mg/dL Normal 0.03-0.18 Indirect Bilirubin 0.6 mg/dL Normal 0.3-1.0 Alkaline Phosphatase 158 U/L High 34-104 Alt 33 U/L Normal 7-52 Ast 27 U/L Normal 13-39 Laboratory test 05/17/2019 [facility] Point of Care 81 mg/dL Normal 70-[address] [place] [address] [phone] Laboratory test 05/10/2019 [facility] B-Type 26 pg/mL <=[address] [place] [address] Peptide BNP [phone] Troponin-I (TnI) 0.03 ng/mL Critical high <0.03 2 1 Home Theater Specialist: [id number] 2 Result TnIDx:0.03 Called to ROSALEE Polk at: 13:24:45 by:[id number] Read back by: ROSALEE Polk Troponin-I testing on Plasma Separator Tubes (PST) has a known false positive rate of 0.20-0.40%. All positive troponins reflex immediately to secondary confirmatory testing. Using the [employer] DxI 800 Access Immunoassay systems, the 99th percentile upper reference limit was demonstrated to be < 0.03 ng/mL. Procedures Date Code Description Status 05/27/2019 61375 Holter Monitor Review (24 hr)dr review & interp only Completed 05/25/2019 53332 ECHO Transthoracic, Real-Time 2D With Doppler And Color Completed Flow 05/25/2019 28330 ECHO Transthoracic, Real-Time 2D With Doppler And Color Completed Flow 05/25/2019 77303 ECG Monitor/Recording W/Visual Superimposition Scanning Completed 05/25/2019 97928 ECG Monitor/Recording W/Visual Superimposition Scanning Completed 05/25/2019 14955 ECG Monitor/Recording W/Visual Superimposition Scanning Completed 05/25/2019 14344 ECG Monitor/Recording W/Visual Superimposition Scanning Completed 05/10/2019 94360 EKG Tracing & Interpretation Completed 02/01/2019 46756 ECHO Transthoracic, Real-Time 2D With Doppler And Color Completed Flow 02/01/2019 26200 ECHO Transthoracic, Real-Time 2D With Doppler And Color Completed Flow 01/29/2019 11181 EKG, Interpretation Only Completed Medical Devices Description No Information Available Encounters Type Date Location Provider Dx Diagnosis Office Visit 05/20/2019 Rheumatology Bao Bennett, H53.8 Other visual 1:00p [facility] - disturbances Ccmob M79.7 Fibromyalgia C83.30 Diffuse large B-cell lymphoma, unspecified site 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 M62.838 Other muscle spasm R74.0 Nonspec elev of levels of transamns & lactic acid dehydrgnse Office Visit 05/10/2019 Kristyn Del Angel47.1 Supraventricular 10:30a [facility], DO tachycardia [facility] C83.30 Diffuse large B-cell lymphoma, unspecified site I42.9 Cardiomyopathy, unspecified R06.02 Shortness of breath R07.9 Chest pain, unspecified Office Visit 03/01/2019 11:25a Rheumatology Bao Bennett M79.7 Fibromyalgia [facility] - Ccmob M25.552 Pain in left hip M54.5 Low back pain C83.30 Diffuse large B-cell lymphoma, unspecified site M54.2 Cervicalgia M25.512 Pain in left shoulder 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 M25.551 Pain in right hip Office Visit 01/29/2019 [facility] I48.91 Unspecified atrial 11:39a rosibel Auguste [place] fibrillation Hospitalists R79.89 Other specified abnormal findings of blood chemistry Office Visit 01/28/2019 [facility] I48.91 Unspecified atrial 11:38a rosibel Auguste [place] fibrillation Hospitalists Assessments Date Code Description Provider 05/27/2019 I47.1 Supraventricular tachycardia Rosalee Lion, DO FAC 05/25/2019 I47.1 Supraventricular tachycardia Rosalee Lion, DO FAC 05/25/2019 I47.1 Supraventricular tachycardia Nurse Visit IC 05/25/2019 I42.9 Cardiomyopathy, unspecified Rosalee Lion, DO FAC 05/25/2019 I42.9 Cardiomyopathy, unspecified Traveling ECHO 1 05/25/2019 I47.1 Supraventricular tachycardia Rosalee Lion, DO FAC 05/25/2019 I47.1 Supraventricular tachycardia Traveling ECHO 1 05/20/2019 H53.8 Other visual disturbances Bao Bennett MD 05/20/2019 M79.7 Fibromyalgia Bao Bennett MD 05/20/2019 C83.30 Diffuse large B-cell lymphoma, Bao Bennett MD unspecified site 05/20/2019 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 Bao Bennett MD 05/20/2019 M62.838 Other muscle spasm Bao Bennett MD 05/20/2019 R74.0 Nonspecific elevation of levels of Bao Bennett MD transaminase and lactic acid dehydrogenase [LDH] 05/10/2019 I47.1 Supraventricular tachycardia Rosalee Lion, DO FAC 05/10/2019 C83.30 Diffuse large B-cell lymphoma, Rosalee Lion, DO [facility] unspecified site 05/10/2019 I42.9 Cardiomyopathy, unspecified Rosalee Lion, DO [facility] 05/10/2019 R06.02 Shortness of breath Rosalee Lion, DO FAC 05/10/2019 R07.9 Chest pain, unspecified Rosalee Lion, DO [facility] 03/01/2019 M79.7 Fibromyalgia Bao Bennett MD 03/01/2019 [...] 02/01/2019 T45.1x5A Adverse effect of antineoplastic and Qutaybeh S. Maghaydah, M.D. immunosuppressive drugs, initial encounter 02/01/2019 T45.1x5A Adverse effect of antineoplastic and Ica ECHO Schedule immunosuppressive drugs, initial encounter 01/29/2019 Z13.6 Encounter for screening for Maksim Javier Kimble M.D., cardiovascular disorders [facility], [facility] 01/29/2019 I48.91 Unspecified atrial fibrillation JERAMIE Serna 01/29/2019 R79.89 Other specified abnormal findings of JERAMIE Serna blood chemistry 01/28/2019 I48.91 Unspecified atrial fibrillation JERAMIE Serna Plan of Treatment 05/20/2019 - Bao Bennett MDH53.8 Other visual disturbancesReferral:Laureano Quintero MD, OphthalmologyFollow up:2-3 pfngprQ70.7 FibromyalgiaNew Medication:Duloxetine HCL 30 mg - take one cap by mouth daily for two weeks then increase to twice kiijfB45.30 Diffuse large B-cell lymphoma, unspecified siteM35.7 Hypermobility ctljbodyS42.838 Other muscle spasmNew Medication: Cyclobenzaprine HCL 5 mg - take 5mg at night before cjycrfuA87.0 Nonspecific elevation of levels of transaminase and lactic acid dehydrogenase [LDH] Functional Status Description No Information Available Mental Status Description No Information Available Referrals Refer to Dr Reason for Referral Status Appt Date Laureano Quintero MD Patient with history of hypermobility, Sent fibromyalgia, B cell lymphoma with issues of occasional blurry vision, please eval and treat for any evidence of lens or other abnormality that might be contributing. Thank you. [address] [place] [address] [phone]
[2019-06-16 15:20] VITALS: BP 96/51
--- NOTE | 2019-06-16 17:11 | UC ---
Respiratory Complaint HPI - HPI Summary HPI Summary: 34-year-old female comes in with a chief complaint of a week and a half upper respiratory tract infection symptoms.'s been having cough chest congestion wheezing rhinorrhea. She has felt short of breath at times. She does have a history of lymphoma her last chemotherapy was in November 2018. No history of asthma. She does have a history of pneumonia. - History of Current Complaint Chief Complaint: UCRespiratory Stated Complaint: URI Time Seen by Provider: 06/16/19 17:01 Hx Last Menstrual Period: 03/14/18- no menses d/t chemo Pain Intensity: 5 - Allergies/Home Medications Allergies/Adverse Reactions: Allergies Allergy/AdvReac Type Severity Reaction Status Date / Time No Known Allergies Allergy Verified 06/16/19 15:13 Home Medications: Home Medications Albuterol HFA INHALER* [Ventolin HFA Inhaler*] 2 puff INH Q4H PRN #1 mdi [Rx] DOXYcycline CAP(*) [DOXYcycline 100MG CAP(*)] 100 mg PO BID #20 cap 06/16/19 [Rx ] Fluticasone NASAL SPRAY 50MCG* [Flonase NASAL SPRAY 50MCG*] 2 spray BOTH NARES DAILY #1 btl 06/16/19 [Rx] Metoprolol Tartrate TAB* [Lopressor TAB*] 25 mg PO DAILY 06/16/19 [History Confirmed 06/16/19] PMH/Surg Hx/FS Hx/Imm Hx Previously Healthy: Yes - lymphoma Respiratory History: Pneumonia - Surgical History Surgical History: Yes Surgery Procedure, Year, and Place: POWER PORT LEFT CHEST,. BIOPSIES - Family History Known Family History: Positive: Other - No family history of migraine or related problems. Negative: Cardiac Disease, Hypertension, Diabetes - Social History Alcohol Use: None Substance Use Type: None Substance Use Comment - Amount & Last Used: Uses CBD oil Smoking Status (MU): Never Smoked Tobacco Have You Smoked in the Last Year: No Household Exposure Type: Cigarettes - Immunization History Most Recent Influenza Vaccination: unknown Most Recent Tetanus Shot: unknown Most Recent Pneumonia Vaccination: none Vaccination Up to Date: Yes Review of Systems All Other Systems Reviewed And Are Negative: Yes Constitutional: Positive: Other - SEE HPI Skin: Positive: Negative Eyes: Positive: Negative ENT: Positive: Nasal Discharge, Sinus Congestion Respiratory: Positive: Cough, Other - SEE HPI Cardiovascular: Positive: Negative Gastrointestinal: Positive: Negative Motor: Positive: Negative Neurovascular: Positive: Negative Musculoskeletal: Positive: Negative Neurological/Mental Status: Positive: Negative Psychological: Positive: Negative Is Patient Immunocompromised?: No Physical Exam Triage Information Reviewed: Yes Appearance: Well-Appearing, No Pain Distress, Well-Nourished Vital Signs: Initial Vital Signs Temp 97.5 F 06/16/19 15:14 Pulse 83 06/16/19 15:14 Resp 16 06/16/19 15:14 BP 96/51 06/16/19 15:14 Pulse Ox 99 06/16/19 15:14 Vital Signs Reviewed: Yes Eye Exam: Normal Eyes: Positive: Conjunctiva Clear ENT: Positive: Pharyngeal erythema, Nasal congestion, Nasal drainage, TMs normal Neck: Positive: Supple Respiratory: Positive: Lungs clear, Normal breath sounds, No respiratory distress Cardiovascular: Positive: RRR Musculoskeletal: Positive: Strength Intact, ROM Intact Neurological: Positive: Alert, Muscle Tone Normal Psychological: Positive: Normal Response To Family, Age Appropriate Behavior Skin Exam: Normal Respiratory Course/Dx - Course Course Of Treatment: Admissions Dean: Bao Cano F ([id number]) Res Habilitation Assistant: [place] ( NUANCE) Report Date: 06/16/2019 16:28:00 Report Status: Final ====== Start of Report Content Patient Name: KEVEN SALINAS Medical Record#: [id number] Ordering Physician: Fabian Song MD Acct.#: [id number] : Age: 34 Sex: F Location: [facility] Exam Date: 06/16/19 1546 ADM Status: REG ER Order Information: CHEST PA LAT 2 VWS Accession Number: [id number] CPT: 54641 INDICATION: Congestion. COMPARISON: Comparison is made with a prior study from January 28, 2019. TECHNIQUE: Dual-energy PA and lateral views of the chest were obtained. FINDINGS: The heart is within normal limits in size. Mediastinal and hilar contours appear within normal limits. There is a power port central venous catheter. The catheter tip projects over the right atrium. The lungs are underinflated with more focal elevation of the right hemidiaphragm which appears unchanged. The lungs are clear. No pleural effusion is seen. IMPRESSION: NO EVIDENCE FOR ACTIVE CARDIOPULMONARY DISEASE. <Electronically signed by Bao Cano MD in OV> 06/16/191623 Dictated By: Bao Cano MD Dictated Date/Time: 06/16/191622 Transcribed Date/Time: 06/16/191622 Copy to: CC:[facility]; Toribio Carvalho MD; Fabian Song MD Imaging - [facility] - [facility] Urgent [facility] [address] [place] [address] ph [phone] ph [phone]) ph ([phone]) ===== End of Report Content DISCUSSED VIRAL VERSES BACTERIAL INFECTIONS AND THE ROLE OF ANTIBIOTICS. THE PATIENT PREFERS TO BE ON ANTIBIOTICS AT THIS TIME. I discussed the x-ray report with patient. Patient prefers to be on an antibiotic at this time. I prescribed doxycycline also going to use albuterol for her Wheezing. For the sinus congestion and a recommended having more fluids and also steam and also Flonase. Patient is to follow-up with her [facility] physician get reevaluated sooner if worse or any questions or concerns. - Differential Dx/Diagnosis Provider Diagnosis: Bronchitis with bronchospasm Discharge ED - Sign-Out/Discharge Documenting (check all that apply): Patient Departure All imaging exams completed and their final reports reviewed: Yes - Discharge Plan Condition: Stable Disposition: HOME Prescriptions: Albuterol HFA INHALER* [Ventolin HFA Inhaler*] 2 puff INH Q4H PRN #1 mdi PRN Reason: Wheezing DOXYcycline CAP(*) [DOXYcycline 100MG CAP(*)] 100 mg PO BID #20 cap Fluticasone NASAL SPRAY 50MCG* [Flonase NASAL SPRAY 50MCG*] 2 spray BOTH NARES DAILY #1 btl Patient Education Materials: Acute Bronchitis (ED), Bronchospasm (ED) Referrals: Toribio Carvalho MD [Primary Care Provider] - Additional Instructions: FOLLOW UP WITH YOUR DOCTOR IF NOT COMPLETELY IMPROVED. GET REEVALUATED SOONER IF NOT IMPROVED OR WORSE OR ANY QUESTIONS OR CONCERNS. - Billing Disposition and Condition Condition: STABLE Disposition: Home
== END 2019-06-16 17:20 | disposition home or self-care (01) ==
LOC: UCEAST 15:00
DX: J40 Bronchitis, not specified as acute or chronic (principal); J98.01 Acute bronchospasm; R09.89 Other specified symptoms and signs involving the circulatory and respiratory systems; R09.81 Nasal congestion; Z85.72 Personal history of non-Hodgkin lymphomas
CPT/HCPCS: 71046; 99212; G0463

== ENCOUNTER 2019-06-17 11:56 | Emergency (ER) | payer OTHER ==
[2019-06-17 12:24] LABS: Influenza A Molecular Negative (Negative); Influenza B Molecular Negative (Negative)
[2019-06-17] MEDS ORDERED: NS 0.9% 1000 ML** 1,000 ML IV ONE (13:42)
[2019-06-17] MEDS ORDERED: Lidocaine 2.5%/Prilocain 2.5%* 5 GM TUBE TOPICAL SCH (14:00)
[2019-06-17] MEDS ORDERED: Lidocaine 2.5%/Prilocain 2.5%* 5 GM TUBE ONE (14:03)
[2019-06-17 14:16] LABS: ABS Eosinophils 0.2 10^3/ul (0-0.6); ABS Lymphocytes 0.5 10^3/ul (1.0-4.8); ABS Monocytes 0.3 10^3/ul (0-0.8); ABS Neutrophils 5.8 10^3/ul (1.5-7.7); Eosinophil % 3.5 %; Hematocrit 38 % (35-47); Hemoglobin 12.9 g/dL (12.0-16.0); Lymphocyte % 7.2 %; Mean Corpuscular HGB Conc 35 g/dL (31-36); Mean Corpuscular Hemoglobin 28 pg (27-31); Mean Corpuscular Volume 82 fL (80-97); Mean Platelet Volume 7.1 fL (7.4-10.4); Nucleated Red Blood Cells % 0.1; Platelet Count 219 10^3/uL (150-450); Red Blood Count 4.55 10^6 /uL (3.70-4.87); Red Cell Distribution Width 14 % (10-15); White Blood Count 6.9 10^3/uL (3.5-10.8)
[2019-06-17 14:32] LABS: Albumin 3.7 g/dL (3.2-5.2); Albumin/Globulin Ratio 1.4 (1-3); BUN/Creatinine Ratio 20.8 (8-20); Calcium 8.5 mg/dL (8.6-10.3); EGFR African American 112.2 (>60); EGFR Non-African American 92.7 (>60); Globulin 2.7 g/dL (2-4); Potassium 3.6 mmol/L (3.5-5.0); Total Bilirubin 0.4 mg/dL (0.2-1.0); Total Protein 6.4 g/dL (6.4-8.9)
[2019-06-17 15:49] VITALS: BP 97/61
--- NOTE | 2019-06-17 16:07 | ED ---
Dizziness - HPI Summary HPI Summary: This patient is a 35-year-old female with history of lymphoma, last chemotherapy treatment in November 2018 who presents to the ED with concern of dehydration. Patient states yesterday she was slightly lightheaded with some blurry vision associated with this. She states she is not drinking as much as she feels she should be. She does endorse some body aches with a cough. Denies any diarrhea. Intermittent nausea. No vomiting. Denies any hematochezia, melena, abdominal pain, weakness. She states her son was diagnosed with the flu and she may have the flu as well. She was seen at [facility] yesterday and dx with URI. States she feels better today compared to yesterday, but still feels not quite herself. No cough. - History Of Current Complaint Chief Complaint: EDFluSymptoms Stated Complaint: LIGHT HEADED, VISION ISSUES PER PT Time Seen by Provider: 06/17/19 12:45 Hx Obtained From: Patient Timing: Constant Severity Initially: Mild Severity Currently: None Character: Dizzy Aggravating Factor(s): Nothing Alleviating Factor(s): Nothing Associated Signs And Symptoms: Positive: Decreased Oral Intake. Negative: Nausea, Vomiting, Diarrhea, Diaphoresis, Unsteady Gait, Blood In Stool, Inability to Walk - Risk Factors Cardiac Risk Factors: Negative CVA Risk Factor: Negative - Allergies/Home Medications Allergies/Adverse Reactions: Allergies Allergy/AdvReac Type Severity Reaction Status Date / Time No Known Allergies Allergy Verified 06/17/19 12:01 Home Medications: Home Medications DOXYcycline CAP(*) [DOXYcycline 100MG CAP(*)] 100 mg PO BID #20 cap 06/16/19 [ Rx Confirmed 06/17/19] Metoprolol Tartrate TAB* [Lopressor TAB*] 25 mg PO DAILY 06/16/19 [History Confirmed 06/17/19] Ascorbic Acid TAB* [Vitamin C TAB*] 500 mg PO DAILY 06/17/19 [History Confirmed 06/17/19] Magnesium Oxide TAB* [MagOx 400 TAB*] 400 mg PO DAILY 06/17/19 [History Confirmed 06/17/19] Turmeric 400 mg PO DAILY 06/17/19 [History Confirmed 06/17/19] PMH/Surg Hx/FS Hx/Imm Hx Previously Healthy: Yes Endocrine/Hematology History: Reports: Hx Anemia Denies: Hx Diabetes, Hx Thyroid Disease Cardiovascular History: Denies: Hx Hypertension, Hx Pacemaker/ICD Respiratory History: Reports: Hx Pneumonia - June 2018 Denies: Hx Asthma, Hx Chronic Obstructive Pulmonary Disease (COPD) History: Denies: Hx Dialysis, Hx Renal Disease Musculoskeletal History: Reports: Hx Arthritis, Hx Back Problems Sensory History: Denies: Hx Contacts or Glasses, Hx Legally Blind, Hx Deafness, Hx Hearing Aid Opthamlomology History: Denies: Hx Contacts or Glasses, Hx Legally Blind Neurological History: Denies: Hx Dementia Psychiatric History: Reports: Hx Anxiety - Says it has dimished as she's gotten older. 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 BIOPSIES Hx Anesthesia Reactions: No - Immunization History Hx Pertussis Vaccination: No Immunizations Up to Date: Yes Infectious Disease History: No Infectious Disease History: Denies: Hx Hepatitis, Traveled Outside the [place] in Last 30 Days - Family History Known Family History: Positive: Other - No family history of migraine or related problems. Negative: Cardiac Disease, Hypertension, Diabetes - Social History Occupation: Unemployed Lives: With Family Alcohol Use: None Hx Substance Use: No Substance Use Type: Reports: None Substance Use Comment - Amount & Last Used: Uses CBD oil Hx Tobacco Use: No Smoking Status (MU): Never Smoked Tobacco Have You Smoked in the Last Year: No Review of Systems Positive: Fatigue. Negative: Fever, Chills, Skin Diaphoresis Negative: Palpitations, Chest Pain Negative: Shortness Of Breath, Cough Genitourinary: Negative Positive: no symptoms reported, see HPI Negative: Arthralgia, Myalgia Neurological/Mental Status: Other - dizziness Positive: Anxious - slightly anxious about health All Other Systems Reviewed And Are Negative: Yes Physical Exam Triage Information Reviewed: Yes Vital Signs On Initial Exam: Initial Vitals Temp Pulse Resp BP Pulse Ox 96 F 82 15 93/71 100 06/17/19 11:57 06/17/19 11:57 06/17/19 11:57 06/17/19 11:57 06/17/19 11:57 Vital Signs Reviewed: Yes Appearance: Positive: Well-Appearing, Well-Nourished. Negative: Ill-Appearing, Pain Distress, Thin, Cachectic, Signs of Trauma Skin: Positive: Warm, Skin Color Reflects Adequate Perfusion Head/Face: Positive: Normal Head/Face Inspection Eyes: Positive: EOMI, JUNI, Conjunctiva Clear Neck: Positive: Supple, No Lymphadenopathy Respiratory/Lung Sounds: Positive: Clear to Auscultation, Breath Sounds Present Cardiovascular: Positive: RRR, Pulses are Symmetrical in both Upper and Lower Extremities Musculoskeletal: Positive: Strength/ROM Intact Neurological: Positive: Speech Normal Psychiatric: Positive: Normal, Affect/Mood Appropriate AVPU Assessment: Alert Procedures - Sedation Patient Received Moderate/Deep Sedation with Procedure: No Diagnostics - Vital Signs Vital Signs Temp Pulse Resp BP Pulse Ox 06/17/19 15:48 81 97/61 99 06/17/19 15:47 86 85 06/17/19 11:57 96 F 82 15 93/71 100 - Laboratory Lab Results: Lab Results 06/17/19 06/17/19 06/17/19 Range/Units 12:03 13:53 13:53 WBC 6.9 (3.5-10.8) 10^3/uL RBC 4.55 (3.70-4.87) 10^6 /uL Hgb 12.9 (12.0-16.0) g/dL Hct 38 (35-47) % MCV 82 (80-97) fL MCH 28 (27-31) pg MCHC 35 (31-36) g/dL RDW 14 (10-15) % Plt Count 219 (150-450) 10^3/uL MPV 7.1 L (7.4-10.4) fL Neut % (Auto) 84.1 % Lymph % (Auto) 7.2 % Coffey % (Auto) 4.9 % Eos % (Auto) 3.5 % Baso % (Auto) 0.3 % Absolute Neuts (auto) 5.8 (1.5-7.7) 10^3/ul Absolute Lymphs (auto) 0.5 L (1.0-4.8) 10^3/ul Absolute Monos (auto) 0.3 (0-0.8) 10^3/ul Absolute Eos (auto) 0.2 (0-0.6) 10^3/ul Absolute Basos (auto) 0.0 (0-0.2) 10^3/ul Absolute Nucleated RBC 0.0 10^3/ul Nucleated RBC % 0.1 Sodium 138 (135-145) mmol/L Potassium 3.6 (3.5-5.0) mmol/L Chloride 107 (101-111) mmol/L Carbon Dioxide 27 (22-32) mmol/L Anion Gap 4 (2-11) mmol/L BUN 15 (6-24) mg/dL Creatinine 0.72 (0.51-0.95) mg/dL Est GFR ( Amer) 112.2 (>60) Est GFR (Non-Af Amer) 92.7 (>60) BUN/Creatinine Ratio 20.8 H (8-20) Glucose 72 (70-100) mg/dL Calcium 8.5 L (8.6-10.3) mg/dL Total Bilirubin 0.40 (0.2-1.0) mg/dL AST 25 (13-39) U/L ALT 48 (7-52) U/L Alkaline Phosphatase 171 H (34-104) U/L Total Protein 6.4 (6.4-8.9) g/dL Albumin 3.7 (3.2-5.2) g/dL Globulin 2.7 (2-4) g/dL Albumin/Globulin Ratio 1.4 (1-3) Influenza A (Rapid) Negative (Negative) Influenza B (Rapid) Negative (Negative) Result Diagrams: 06/17/19 13:53 06/17/19 13:53 Lab Statement: Any lab studies that have been ordered have been reviewed, and results considered in the medical decision making process. Dizzy Course/Dx - Course Course Of Treatment: This patient is evaluated for possible dehydration. Patient states she is not drinking as much as she should be. She is also endorses body aches some dizziness yesterday and some visual changes. She denies any visual changes currently. She endorses some amount of dizziness, but states this typical for her when she becomes dehydrated. On physical examination, patient appears well. She is nondiaphoretic, nontoxic appearing. She has good color throughout. No evidence of dry mucous membranes. Lungs are CTA. RRR. She has a port to the left chest wall with no erythema or signs of infection surrounding. No abdominal tenderness throughout. Ambulating well with movement of all extremities. Neuro exam intact. Pt given 1L fluids with improvement of symptoms. She does have a hx of anemia, so labs obtained and are unremarkable. No cardiac hx. Continues to have a slightly elevated Alk phos at baseline. Flu negative. Pt will be discharged with dx of dizziness. - Diagnoses Differential Diagnosis/HQI/PQRI: Other - dehydration, viral syndrome, fatigue Provider Diagnoses: Dizziness, Anxiety about health Discharge ED - Sign-Out/Discharge Documenting (check all that apply): Patient Departure - Discharge Plan Condition: Stable Disposition: HOME Referrals: Toribio Carvalho MD [Primary Care Provider] - Additional Instructions: Drink plenty of water If you develop fevers, please return to the ED - Billing Disposition and Condition Condition: STABLE Disposition: Home
== END 2019-06-17 16:18 | disposition home or self-care (01) ==
LOC: ED 11:56
DX: R42 Dizziness and giddiness (principal); F41.9 Anxiety disorder, unspecified; D64.9 Anemia, unspecified; Z85.72 Personal history of non-Hodgkin lymphomas; Z79.899 Other long term (current) drug therapy
CPT/HCPCS: 36415; 80053; 85025; 96360; 99284; A9270-GY